=== PATIENT | female | born 1945 | race Caucasian/White ===

== ENCOUNTER 2025-08-01 14:49 | Outpatient (AMB) | payer MEDICARE, SELFPAY ==
--- NOTE | 2025-08-01 14:51 | A.OFFVIS_ITS ---
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 She has a long history of bilateral tinnitus but no hearing loss or severe vertigo. In the last 6 months, she has noted sudden episodic balance problems while she is walking,she suddenly goes to 1 side briefly. She has not fallen. It is not related to quick change in direction, head movement or getting up quickly. She thinks she had a TIA 1 month ago but did not see anyone. She had gotten up at night and felt dizzy and for a few seconds she could not talk and her speech was slurred. There has been no recurrence after that and no previous history of those symptoms. Over the last year or so, she has noted that her memory is not as sharp and she has some short-term memory problems as well as word-finding difficulties where she gets stuck for a word. Her older sister developed Alzheimer's disease at 82. She also has a past history of breast cancer but has been cancer free for 7 years. She has had back surgery, hysterectomy,and shoulder surgery in the past. She has had occasional headaches and also has some anemia. COUNTS INCLUDE 234 BEDS AT THE [facility] Medical History (Updated 08/01/25 @ 15:07 by Osvaldo Oseguera MD) Recurrent breast cancer Osteopenia Multiple lung nodules on CT Lumbar spinal stenosis Glaucoma Fibromyalgia Depression Anemia Surgical History (Updated 07/27/25 @ 15:09 by SAL Villela) H/O shoulder surgery H/O mastectomy Hx of hysterectomy H/O colonoscopy History of lumpectomy of left breast History of back surgery Social History (Updated 07/27/25 @ 15:09 by SAL Villela) Alcohol intake: current Patient Tobacco Use Status: Never used Tobacco e-Cigarette/Vaping Use: Never Used Review of Systems Narrative Occasional headache, short-term memory loss with some word-finding difficulties, bilateral tinnitus and episodes of brief loss of balance Const Details: ?Sleep Difficulty getting to sleep??denies.??Difficulty maintaining sleep??denies?.?? Urge to move legs??denies.??Teeth grinding??denies.??Shouting or Kicking during sleep??denies.??Abnormal behavior during sleep??denies.??Excessive sleep??denies.??Snoring??denies.??Daytime sleepiness??denies.? General/Constitutional Change in appetite??denies.??Chills??denies.??Fatigue??denies.??Fever??denies.?? Weight gain??denies.??Weight loss??denies.? Ophthalmologic Blurred vision??denies.??Diminished visual acuity??denies.? ENT Stuffiness??denies.??Decreased hearing??denies.??Dry mouth??denies.??Ear pain??denies.??Nosebleed??denies.??Ringing in the ears??denies.??Sinus pain ??denies.??Sore throat??denies.??Swollen glands??denies.? Endocrine Cold intolerance??denies.??Excessive thirst??denies.??Frequent urination ??denies.??Heat intolerance??denies.? Respiratory Shortness of breath??denies.??Chest pain??denies.??Cough??denies.? Breast Breast lump??denies.??Nipple discharge??denies.? Cardiovascular Chest pain at rest??denies.??Chest pain with exertion??denies.??Claudication ??denies.??Fluid accumulation in the legs??denies.??Irregular heartbeat ??denies.??Palpitations??denies.? Gastrointestinal Abdominal pain??denies.??Constipation??denies.??Diarrhea??denies.??Heartburn ??denies.??Nausea??denies.??Rectal bleeding??denies.? Hematology Easy bruising??denies.??Prolonged bleeding??denies.? Genitourinary Frequent urination??denies.??Urgency??denies.??Incontinence??denies.??Erectile Dysfunction??denies.? Musculoskeletal Neck pain??denies.??Back pain??denies.??Muscle aches??denies.??Painful joints??denies.? Neurologic Difficulty swallowing??denies.??Balance difficulty??yes.??Coordination ??normal.??Difficulty speaking??word finding.??Dizziness??denies.??Fainting ??denies.??Gait abnormality??yes.??Headache??yes.??Loss of strength ??denies.??Loss of use of extremity??denies.??Memory loss??yes.??Seizures ??denies.??Tics??denies.??Tingling/Numbness??denies.??Transient loss of vision ??denies.??Tremor??denies.? Psychiatric Anxiety??denies.??Auditory/visual hallucinations??denies.??Delusions ??denies.??Depressed mood??yes.??Stressors??denies.??Substance abuse ??denies.??Suicidal thoughts??denies.? Physical Exam Neuro Other: ?Mini Mental Status Exam Level of Consciousness:?Alert.? Orientation:?Knows correct year, month, date, day and season.?Knows correct city, county and state. Knows correct location and floor.? Registration:?Able to register 3 objects.? Attention:?Serial 7's performed accurately.? Recall:?Able to recall 3 out of 3 objects.? Language:?Normal spontaneous speech, fluency, repetition, naming, comprehension, reading, and writing.? Total Score:?30/30.? Neurological Abnormal neurological findings:??none.? Mental Status:?Alert and oriented X 3.?Normal attention, orientation, me polly, and affect.? Cranial Nerves:?Pupils are equal, round and reactive to light. Fundoscopy shows normal disc bilaterally. External occular muscles are intact. Visual wilson are full, no ptosis. Face is symmetrical, no facial weakness or droop. Facial sensations are normal. Tongue protrudes in midline. Palate elevates symmetrically. Shoulder shrugging is normal.? Motor Examination:?Normal muscle tone, bulk and strength.?No atrophy or fasciculations.?No drift of the extended upper extremities.?Deep tendon reflexes are 2+.?Plantars are flexor.? Motor Strength:? Proximal Muscles (out of 5):?5 Distal Muscles (out of 5):?5 Neck Flexors (out of 5):?5 Neck Extensors (out of 5):?5 Deltoid (out of 5):?5 Biceps (out of 5):?5 Triceps (out of 5):?5 Serratus Anterior (out of 5):?5 Wrist Extensors (out of 5):?5 APB (out of 5):?5 Finger Spread (out of 5):?5 Ileopsoas (out of 5):?5 Quadriceps (out of 5):?5 Hamstrings (out of 5):?5 Tibialis Anterior (out of 5):?5 Peronei (out of 5):?5 EDB (out of 5):?5 Gastrocnemius (out of 5):?5 Straight Leg Raising:?90 degrees.? Sensory Exam:?Normal light touch, temperature, pinprick, vibration and joint-position sensations.?Rhomberg sign is absent.? Coordination:?No ataxia,?no titubation,?bqnvsc-fy-[id number], jojt-wucr-bygw test, and rapid alternating movements were normal.? Gait Exam:?Within normal limits.? Cerebellar Signs:?Swnxlk-uh-[id number] and noie-la-gabm is normal.?No dysdiadochokinesia.? Extrapyramidal System:?No tremor or?rigidity, normal facial expressions.?No bradykinesia. No bradyphrenia. Normal arm swing and posture. No propulsion or retropulsion.? Speech:?Normal,?no dysphasia or dysarthria.? General Examination GENERAL APPEARANCE:??normal,?in no acute distress?,?normal,?in no acute distress.? HEAD:??normocephalic,?atraumatic.? EYES:??sclera non-icteric,?conjunctiva clear.? EARS:??auditory canal clear,?tympanic membrane intact, clear.? NOSE:??no lesions.? ORAL CAVITY:??gums normal,?mucosa moist,?no lesions.? THROAT:??clear.? NECK/THYROID:??no cervical lymphadenopathy,?thyroid normal,?neck supple, full range of motion,?no carotid bruit.? SKIN:??no rashes,?no significant birthmarks.? HEART:??S1, S2 normal,?no murmurs?,?S1, S2 normal,?no murmurs.? LUNGS:??clear anteriorly and posteriorly?,?clear anteriorly and posteriorly.? CHEST:??no gross rib deformity,?clear to auscultation.? BACK:??normal exam of spine.? MUSCULOSKELETAL:??normal.? EXTREMITIES:??no edema?,?no edema.? PERIPHERAL PULSES:??normal.? PSYCH:??alert, oriented,?cognitive function intact,?cooperative with exam?,?alert, oriented,?cognitive function intact,?cooperative with exam.? Assessment & Plan Assessment & Plan (1) Dizziness: Code(s): R42 - Dizziness and giddiness Category: Medical (2) Ataxia: Code(s): R27.0 - Ataxia, unspecified Category: Medical (3) MCI (mild cognitive impairment) with memory loss: Code(s): G31.84 - Mild cognitive impairment of uncertain or unknown etiology Category: Medical (4) TIA (transient ischemic attack): Code(s): G45.9 - Transient cerebral ischemic attack, unspecified Category: Medical Plan Workup for her ataxia to make sure there is no microvascular disease or cerebellar lesion. TIA like episode will be investigated with a carotid Doppler and complete workup for her mCi for and memory loss with brain MRI, Amyloid PET scan labs and EEG. Orders: Orders PET Brain beta amyloid 4 Weeks G31.84 - Mild cognitive impairment of uncertain or unknown etiology TSH reflex Free T4 Today G31.84 - Mild cognitive impairment of uncertain or unknown etiology EEG Routine Today G31.84 - Mild cognitive impairment of uncertain or unknown etiology MR head/brain wo con 3 Weeks G31.84 - Mild cognitive impairment of uncertain or unknown etiology, R27.0 - Ataxia, unspecified US carotid duplex BI Today G45.9 - Transient cerebral ischemic attack, unspecified Vitamin B12 and Folate Today G31.84 - Mild cognitive impairment of uncertain or unknown etiology Basic Metabolic Panel Today G31.84 - Mild cognitive impairment of uncertain or unknown etiology Coding Level of Care Code New Pt Level 5 (38464) Diagnoses Dizziness R42 Ataxia R27.0 MCI (mild cognitive impairment) with memory loss G31.84 TIA (transient ischemic attack) G45.9
--- OUTSIDE RECORDS SUMMARY | 2025-08-01 20:02 | XMS_ITS | Clinical Summary ---
Author Organization [facility] Address [address] [place] [address] Care Team Providers Care Fisher Seal Name Role Phone Tor Gomez MD Primary Care Provider Unavailab le Allergies Active Allergy Reactions Criticality Noted Date Comments Latex 02/07/2018 Medications Medication Sig Dispensed Refills Start Date End Date Status citalopram (CELEXA) 20 MG tablet Take 20 mg by mouth daily. 0 Active venlafaxine (EFFEXOR) 37.5 MG tablet Take 37.5 mg by mouth 2 (two) times a day. 0 Active DORZOLAMIDE HCL OP Apply to eye. 0 Act alice timolol (TIMOPTIC) 0.25 % ophthalmic solution 1 drop 2 (two) times a day. 0 Active buPROPion (WELLBUTRIN XL) 150 MG 24 hr tablet Take 150 mg by mouth daily. 0 Active duloxetine (CYMBALTA) DR capsule 60 mg Take 60 mg by mouth daily. 0 Active dorzolamide-timolol PF (COSOPT PF) 22.3-6.8 MG/ML ophthalmic solution 1 drop 2 (two) times a day. 0 Active Mirabegron ER (MYRBETRIQ) 50 MG TB24 Take by mouth. 0 Active Multiple Vitamins-Minerals (MULTIVITAMIN ADULTS PO) Take by mouth. 0 Active B Complex Vitamins (VITAMIN-B COMPLEX PO) Take by mouth. 0 Active Cholecalciferol (VITAMIN D) 1000 units tablet Take 1,000 Units by mouth daily. 0 Active vitamin E 100 UNIT capsule Take 100 Units by mouth daily. 0 Active buPROPion (WELLBUTRIN SR) 150 MG 12 hr tablet TAKE 1 TABLET BY MOUTH ONCE DAILY FOR 3 DAYS THEN INCREASE TO TWICE ADAY 2 02/23/2019 Active venlafaxine (EFFEXOR-XR) 75 MG 24 hr capsule Take 75 mg by mouth daily. 1 02/09/2019 Active meloxicam (MOBIC) 7.5 MG tablet 0 03/23/2019 Active exemestane (AROMASIN) 25 MG tablet TAKE 1 TABLET BY MOUTH EVERY DAY 60 tablet 0 06/26/2022 Active Active Problems Problem Noted Date Diagnosed Date Arthritis of right glenohumeral joint 03/25/2019 Fibromyalgia 02/07/2018 Other specified glaucoma 02/07/2018 Malignant neoplasm of central portion of left fe male breast 05/19/2017 Malignant neoplasm of lower- outer quadrant of left female breast 03/24/2017 Overview: T1c N1M0 Microhematuria 12/25/2016 Chronic bladder pain 08/15/2016 Urgency of urination 08/15/2016 Nocturia 08/08/2015 Abnormal findings on cytolog ical and histological examination of urine Abdominal pain, right upper quadrant Frequency of urination Family History Medical History Relation Name Comments Colon cancer Brother Diabetes Other runs in the family Hypertension Other runs in the family Relation Name Status Comments Brother Other runs in the family Alive Social History Tobacco Use Types Packs/Day Years Used Date Smoking Tobacco: Never Smokeless Tobacco: Never Alcohol Use Standard Drinks/Week Comments No 0 (1 standard drink = 0.6 oz pur e alcohol) Sex and Gender Information Value Date Recorded Sex Assigned at Not on file Gender Identity Not on file Sexual Orientation Not on file Job Start Date Occupation Industry Not on file Not on file Not on file Last Filed Vital Signs Vital Sign Reading Time Taken Comments Blood Pressure 159/68 03/19/2022 11:12 AM EDT Pulse 85 03/19/2022 11:12 AM EDT Temperature 36.9 C (98.5 F) 03/19/2022 11:12 AM EDT Respiratory Rate - - Oxygen Saturation 100% 03/19/2022 11:12 AM EDT Inhaled Oxygen Concentration - - Weight 61.5 kg (135 lb 9.6 oz) 03/19/2022 11:12 AM EDT Height 149.9 cm (4' 11 ) 03/19/2022 11:12 AM EDT Body Mass Index 27.39 03/19/2022 11:12 AM EDT Plan of Treatment Health Maintenance Due Date Last Done Comments COVID-19 Vaccine (#1) 01/20/1950 Depression Screening 1957 Preventative Health Evaluation 01/20/1962 DTap / Tdap / Td (1 - Tdap) 01/20/1963 Shingrix-Zoster Vaccine (1 o f 2) 01/20/1963 Fall Risk Assessment 01/20/2009 Osteoporosis Screening (DEXA Scan) 01/20/2009 Pneumococcal Vaccine (2 of 2 - PPSV23 or PCV20) 11/17/2017 09/22/2017, 05/29/2016 RSV Adult > 60+ Yrs or (1 - 1-dose 75+ series) 01/20/2019 Influenza Vaccine (#1) 2025 1, 08/12/2019, 07/25/2017 Hepatitis B Vaccines Aged Out No long er eligible based on patient's age to complete this topic RSV Ped < 20 months Aged Out No longe r eligible based on patient's age to complete this topic Care Teams Fisher Seal Relationship Specialty Start Date End Date Tor Gomez MD PCP - General Internal Medicine 03/03/19
--- OUTSIDE RECORDS SUMMARY | 2025-08-01 20:02 | XMS_ITS ---
Author Name [facility] Organization Unknown Care Team Organization Name Specialty Phone Email Start Date End Da te [facility] 05/31/2025 [facility] GINETTE EARL Primary Care 08/19/2022 05/30/20 24
--- OUTSIDE RECORDS SUMMARY | 2025-08-01 20:02 | XMS_ITS | Encounter Summary ---
Author Organization [facility] Address [address] [place] [address] Care Team Providers Care Cutter Operator Helper Name Role Phone Tor Gomez MD Primary Care Provider [phone] Reason for Visit * Reason Onset Date Comments Referral(neruo) 05/12/2025 Encounter Details Date Type Department Care Team ([facility] st Contact Info) Description 05/12/2025 Telephone Internal Medicine - [place] [address] [facility] [address] [place] [phone] Tor Gomez MD [address] [facility] [address] [place] [address] Social History Tobacco Use Types Packs/Day Years Used Date Smoking Tobacco: Never Smokeless Tobacco: Never Alcohol Use Standard Drinks/Week Comments Yes 0 (1 standard drink = 0.6 oz pur e alcohol) Comments No Sex and Gender Information Value Date Recorded Sex Assigned at Not on file Legal Sex Female 10:26 AM EST Gender Identity Not on file Sexual Orientation Not on file documented as of this encounter Progress Notes * Yareli Madison [place] - 05/23/2025 1:56 PM EDT 05/23 Left patient vmail to return call regarding message below. Awaiting pt cb . * Chiara Falk - 05/12/2025 2:46 PM EDT Pt called and stated that the neurologist she was sent to can not see her until the end of July and she would like to know if she can be seen somewhere else sooner or if the current referral can be expedited. Please advise Cb# [phone] documented in this encounter Plan of Treatment Upcoming Encounters Date Type Department Care Team (Late st Contact Info) Description 08/14/2025 2:40 PM EST Office Visit [facility] Cardiology [address] [place] [address] Pearl Perez NP [address] [place] [address] [address] [place] [phone] 12/27/2025 10:45 AM EDT Office Visit [facility] Hematology Oncology [address] [place] [address] Adam Jang MD [address] [place] [phone] documented as of this encounter Visit Diagnoses Not on filedocumented in this encounter Additional Health Concerns Assessment Noted Time PHQ-9 Depression Total Score: 0 04/27/20 25 8:31 AM EDT documented as of this encounter Care Teams Cutter Operator Helper Relationship Specialty Start Date End Date Tor Gomez MD [address] [facility] [address] [place] [address] PCP - General Internal Medicine 12/02/18 documented as of this encounter
--- OUTSIDE RECORDS SUMMARY | 2025-08-01 20:02 | XMS_ITS | Encounter Summary ---
Author Organization [facility] Address [address] [place] [address] Care Team Providers Care Idea Man Name Role Phone Tor Gomez MD Primary Care Provider [phone] Encounter Details Date Type Department Care Team (Late st Contact Info) Description 07/11/2025 Results Follow-Up [facility] Hematology Oncology [address] [place] [phone] Adam Jang MD [address] [place] [phone] Social History Tobacco Use Types Packs/Day Years [...] on file documented as of this encounter Plan of Treatment Upcoming Encounters Date Type Department Care Team (Late st Contact Info) Description 08/14/2025 2:40 PM EST Office Visit [facility] [address] [place] [phone] Pearl Perez NP [address] [place] [address] [address] [place] [phone] 12/27/2025 10:45 AM EDT Office Visit [facility] Hematology Oncology [address] [place] [phone] Adam Jang MD [address] [place] [phone] documented as of this encounter Visit Diagnoses Not on filedocumented in this encounter Additional Health Concerns Assessment Noted Time PHQ-9 Depression Total Score: 0 04/27/20 25 8:31 AM EDT documented as of this encounter Care Teams Idea Man Relationship Specialty Start Date End Date Tor Gomez MD [address] [address] PCP - General Internal Medicine 12/02/18 documented as of this encounter
--- OUTSIDE RECORDS SUMMARY | 2025-08-01 20:02 | XMS_ITS | Clinical Summary ---
Author Organization [facility] Address [address] [place] [phone] Phone Care Team Providers Care Mechanical Artist Name Role Phone Tor Gomez MD Primary Care Provider [phone] Allergies Active Allergy Reactions Criticality Noted Date Comments Latex 05/11/2025 Medications venlafaxine XR (EFFEXOR-XR) 75 mg 24 hr capsuleIndicatio ns:Major depressive disorder, recurrent, unspecified (CMS/HCC V24) Take 1 capsule (75 mg total) by mouth 1 (one) time each day. 90 capsule 3 04/27/2025 Active buPROPion SR (WELLBUTRIN SR) 150 mg 12 hr tablet Take 1 tablet (150 mg total) by mouth 2 (two) times a day. 02/23/2019 Active carvediloL (COREG) 3.125 mg tablet TAKE 1 TABLET BY MOUTH TWICE A DAY WITH MEALS 180 tablet 06/02/2025 Active Encounters Date Type Department Care Team Description 07/11/2025 Results Follow-Up [facility] Hematology Oncology [address] [place] [phone] Genaro-Iy Adam lee MD 07/06/2025 1:00 PM EDT Office Visit [facility] Hematology Oncology [address] [place] [address] Williamonia-Iy Adam lee MD Normocytic anemia 05/12/2025 Telephone Internal Medicine - [place] [address] [facility] [address] [place] [address] Tor Gomez MD 05/11/2025 10:00 AM EDT Consult Internal Medicine - [place] [address] [facility] [address] [place] [address] Tor Gomez MD Preop examination (Primary Dx); Balance disorder; Normocytic anemia; Current mild episode of major depressive disorder, unspecified whether recurrent (CMS/HCC V24) from Last 3 Months Surgical History Surgery Date Site/Laterality Comments BACK SURGERY 2008 PROCEDURE: HISTORICAL BACK SURGERY; COMMENT: L4-L5 fusion Dr. Rosales MASTECTOMY 1993 Right PROCEDURE: HISTORICAL MASTECTOMY; COMMENT: due cancer SHOULDER SURGERY Left PROCEDURE: HISTORICAL SHOULDER SURGERY; COMMENT: Dr. Lawson BREAST LUMPECTOMY 12/2016 Left PROCEDURE: HISTORICAL BREAST LUMPECTOMY; COMMENT: due cancer HYSTERECTOMY late PROCEDURE: HISTORICAL HYSTERECTOMY; COMMENT: uterine fibroids and DUB COLONOSCOPY 10/31/2016 PROCEDURE: HISTORICAL COLONOSCOPY; COMMENT: polyp=tubular adenoma- repeat [address] Carreno Medical History Medical History Date Comments Anemia 03/24/2018 DX:Anemia Depression, recurrent (CMS/HCC V24) 09/22/2017 DX:Depression, recurrent ([facility]); COMMENT: Comments: ( citalopram increased 04/25/15) [employer]GER wellness exam supports major depression 03/01/13 Fibromyalgia 03/24/2018 DX:Fibromyalgia Glaucoma 02/25/2010 DX:Glaucoma Lumbar spinal stenosis 05/29/2016 DX:Lumbar spinal stenosis Multiple lung nodules on CT 10/15/2016 DX:M ultiple lung nodules on CT Recurrent breast cancer (CMS /HCC V24, CMS/HCC V28) 03/24/2018 DX:Recurrent breast cancer ( [facility]) Osteopenia DX:Osteopenia Social History Tobacco Use Types Packs/Day Years Used Date Smoking Tobacco: Never Smokeless Tobacco: Never Tobacco Cessation:Counseling Given: Not Answered Alcohol Use Standard Drinks/Week Comments Yes 0 (1 standard drink = 0.6 oz pur e alcohol) Comments No Sex and Gender Information Value Date Recorded Sex Assigned at Not on file Legal Sex Female 10:26 AM EST Gender Identity Not on file Sexual Orientation Not on file Obstetrics History Last Filed Vital Signs Vital Sign Reading Time Taken Comments Blood Pressure 144/44 07/06/2025 1:06 PM EDT Pulse 78 07/06/2025 1:06 PM EDT Temperature 36.7 C (98 F) 07/06/2025 1:06 PM EDT Respiratory Rate 18 04/27/2025 8:31 AM EDT Oxygen Saturation 100% 07/06/2025 1:06 PM EDT Inhaled Oxygen Concentration - - Weight 57.2 kg (126 lb) 07/06/2025 1:06 PM EDT Height 149.9 cm (4' 11 ) 05/11/2025 10:09 AM EDT Body Mass Index 25.45 05/11/2025 10:09 AM EDT Plan of Treatment Upcoming Encounters Date Type Department Care Team (Late st Contact Info) Description 08/14/2025 2:40 PM EST Office Visit [facility] [address] [place] [address] Dr Delgado [address] [place] [phone] Pearl Perez NP [address] [place] [address] Dr Dhaliwal [address] [place] [phone] 12/27/2025 10:45 AM EDT Office Visit [facility] Hematology Oncology [address] [place] [address] Adam Jang MD [address] [place] [phone] Health Maintenance Due Date Last Done Comments DTaP,Tdap,and Td Vaccines (1 - Tdap) 01/20/1964 RSV Immunization Adult Patients (1 - 1-dose 75+ series) 01/20/2019 Falls Risk Assessment 09/18/2022 Social Influencers of Health Screening 09/18/2022 COVID-19 Vaccine ( season) 2025 11/13/2022, 08/05/2021, 01/15/2021, Additional history exists Influenza Vaccine (#1) 2025 , 09/30/2023, 09/10/2022, Additional history exists Hypertension/CHF/CAD Annual BMP Blood Test 04/27/2026 04/27/2025, 04/25/2024 Medicare Annual Wellness Visit 04/27/2026 04/27/2025 Cholesterol Screening (Lipid Panel) 04/27/2030 04/27/2025, 04/25/2024 Osteoporosis Screening (Bone Density Screening) 06/16/2033 06/16/2023, 02/25/2021, 02/27/2020, Additional history exists Zoster Vaccines Completed 03/26/2023, 11/2022, 09/27/2013 Pneumococcal Vaccine: 50+ Years Completed 09/30/2023, 09/22/2017, 05/29/2016 Depression Screening Completed 04/27/2025 HIB Vaccines Aged Out No longer eligi ble based on patient's age to complete this topic HPV Vaccines Aged Out No longer eligi ble based on patient's age to complete this topic Hepatitis A Vaccines Aged Out No long er eligible based on patient's age to complete this topic Hepatitis B Vaccines Aged Out No long er eligible based on patient's age to complete this topic IPV Vaccines Aged Out No longer eligi ble based on patient's age to complete this topic MMR Vaccines Aged Out No longer eligi ble based on patient's age to complete this topic Meningococcal ACWY Vaccine Aged Out N o longer eligible based on patient's age to complete this topic Meningococcal B Vaccine Aged Out No l onger eligible based on patient's age to complete this topic RSV Immunization Patients Under 20 months Aged Out No longer eligible based on patient's age to complete this topic Varicella Vaccines Aged Out No longer eligible based on patient's age to complete this topic Procedures Procedure Name Priority Date/Time Associated Diagnosis Comments ME PROTEIN ELECTROPHORETIC FRACTIONATION & QUANTITATION SERUM Routine 07/06/2025 1:36 PM EDT Normocytic anemia PROTEIN, TOTAL Routine 07/06/2025 1:36 PM EDT Normocytic anemia CBC WITH AUTO DIFFERENTIAL Routine 07/06/2025 1:36 PM EDT Normocytic anemia PROTEIN ELECTROPHORESIS, SERUM Routine 07/06/2025 1:36 PM EDT Normocytic anemia VITAMIN B12 AND FOLATE Routine 1:36 PM EDT Normocytic anemia HAPTOGLOBIN Routine 07/06/2025 1:36 PM EDT Normocytic anemia LACTATE DEHYDROGENASE Routine 07/06/2025 1:36 PM EDT Normocytic anemia FERRITIN Routine 07/06/2025 1:36 PM EDT Normocytic anemia IRON AND TIBC Routine 07/06/2025 1:36 PM EDT Normocytic anemia CBC AND DIFFERENTIAL Routine 07/06/2025 1:36 PM EDT Normocytic anemia COMPREHENSIVE METABOLIC PANEL Routine 04/27/2025 8:51 AM EDT Hypercholesterolemi a Hyperglycemia LIPID PANEL WITH REFLEX TO DIRECT LDL Routine 04/27/2025 8:51 AM EDT Hypercholesterolemi a Hyperglycemia STAN DEXA AXIAL SKELETON Routine 06/16/20 9:57 AM EDT Encounter for screening for osteoporosis from Last 3 Months or Most Recently Relevant to Health Maintenance Results * PATHOLOGIST REVIEW PROTEIN ELECTROPHORESIS (07/06/2025 1:36 PM EDT) Pathologist Interpretation Kirstin Phelan MD 07/10/2025 2:47 PM EDT [facility] Blood Venous blood specimen / Unknown Venipuncture / Unknown 07/06/2025 1:36 PM EDT 07/06/2025 4:34 PM EDT us Adam Jang MD LAB BLOOD ORDERABLE S Final Result [facility] [address] [place] [address], * (ABNORMAL) Vitamin B12 and folate (07/06/2025 1:36 PM EDT) [facility] Vitamin B-12 >2,000(H) 250 - 900 pcg/mL LAB CHEMISTRY METHOD 07/06/2025 10:35 PM EDT [facility] Folate >20.0(H) 2.8 - 17.0 ng/ml LAB CHEMISTRY METHOD 07/06/2025 10:35 PM EDT [facility] Blood Venous blood specimen / Unknown Venipuncture / Unknown 07/06/2025 1:36 PM EDT 07/06/2025 4:34 PM EDT Adam Jang MD LAB BLOOD ORDERABLE S Final Result [facility] [address] [place] [address], * (ABNORMAL) CBC auto differential (07/06/2025 1:36 PM EDT) [facility] WBC 6.6 4.8 - 10.8 K/mcL LAB HEMETOLOGY METHOD 07/06/2025 5:11 PM EDT [facility] RBC 4.00 3.80 - 4.80 M/mcL LAB HEMETOLOGY METHOD 07/06/2025 5:11 PM EDT [facility] Hemoglobin 11.0(L) 11.5 - 16.0 g/dL LAB HEMETOLOGY METHOD 07/06/2025 5:11 PM EDT [facility] Hematocrit 36.2 35.0 - 47.0 % LAB HEMETOLOGY METHOD 07/06/2025 5:11 PM EDT [facility] MCV 89.8 79.0 - 98.0 FL LAB HEMETOLOGY METHOD 07/06/2025 5:11 PM EDT [facility] MCH 27.3 27.0 - 32.0 pcg LAB HEMETOLOGY METHOD 07/06/2025 5:11 PM EDT [facility] MCHC 30.4(L) 32.0 - 37.0 g/dL LAB HEMETOLOGY METHOD 07/06/2025 5:11 PM EDT [facility] RDW 13.4 11.0 - 15.0 % LAB HEMETOLOGY METHOD 07/06[facility]2025 [facility] Platelets 362 130 - 400 K/mcL LAB HEMETOLOGY METHOD 07/06/2025 5:[facility] MPV 11.0 7.0 - 11.0 FL LAB HEMETOLOGY METHOD 07/06/2025 5:[facility] NRBC 0.0 <1.0 % LAB HEMETOLOGY METHOD 07/06/2025 5:[address] [facility] NRBC Absolute 0.00 <0.10 K/mcL LAB HEMETOLOGY METHOD 07/06/2025 5:[address] [facility] Neutrophils Relative 66.4 % LAB HEMETOLOGY METHOD 07/06/2025 5:[address] [facility] Lymphocytes Relative 20.8 % LAB HEMETOLOGY METHOD 07/06/2025 5:[address] [facility] Monocytes Relative 8.2 % LAB HEMETOLOGY METHOD 07/06/2025 5:[address] [facility] Eosinophils Relative 3.5 % LAB HEMETOLOGY METHOD 07/06/2025 5:[address] [facility] Basophils Relative 0.8 % LAB HEMETOLOGY METHOD 07/06/2025 5:[address] [facility] Immature Granulocytes Relative 0.3 % LAB HEMETOLOGY METHOD 07/06/2025 5:[address] [facility] Neutrophils Absolute 4.38 1.50 - 7.00 K/mcL LAB HEMETOLOGY METHOD 07/06/2025 5:[facility] Lymphocytes Absolute 1.37 1.00 - 5.00 K/mcL LAB HEMETOLOGY METHOD 07/06/2025 5:11 PM EDT [facility] Monocytes Absolute 0.54 0.20 - 1.00 K/mcL LAB HEMETOLOGY METHOD 07/06/2025 5:11 PM EDT [facility] Eosinophils Absolute 0.23 0.00 - 0.50 K/[facility] LAB HEMETOLOGY METHOD 07/06/2025 5:11 PM EDT [facility] Basophils Absolute 0.05 0.00 - 0.20 K/mcL LAB HEMETOLOGY METHOD 07/06/2025 5:11 PM EDT [facility] Immature Granulocytes Absolute 0.02 0.00 - 0.03 K/mcL LAB HEMETOLOGY METHOD 07/06/2025 5:11 PM EDT [facility] Blood Venous blood specimen / Unknown Venipuncture / Unknown 07/06/2025 1:36 PM EDT 07/06/2025 4:38 PM EDT Adam Jang MD LAB BLOOD ORDERABLE S Final Result [facility] [address] [place] [address], * Iron and TIBC (07/06/2025 1:36 PM EDT) Iron 65 40 - 150 mcg/dL LAB CHEMISTRY METHOD 07/06/2025 10:13 PM EDT [facility] TIBC 288 250 - 450 mcg/dL LAB CHEMISTRY METHOD 07/06/2025 10:13 PM EDT [facility] Iron Saturation 23 15 - 50 % LAB CHEMISTRY METHOD 07/06/2025 10:13 PM EDT [facility] Blood Venous blood specimen / Unknown Venipuncture / Unknown 07/06/2025 1:36 PM EDT 07/06/2025 4:34 PM EDT us Adam Jang MD LAB BLOOD ORDERABLE S Final Result [facility] [address] [place] [address], [place] [phone] * Protein electrophoresis, serum (07/06/2025 1:36 PM EDT) Pathologist [facility] Total Protein 6.8 6.0 - 8.0 g/dL LAB CHEMISTRY METHOD 07/10/2025 2:47 PM EDT [facility] Albumin, Serum 3.7 2.9 - 4.1 g/dL LAB CHEMISTRY METHOD 07/10/2025 2:47 PM EDT [facility] Alpha 1 Globulin (g/dL) 0.2 0.1 - 0.5 g/dL LAB CHEMISTRY METHOD 07/10/2025 2:47 PM EDT [facility] Alpha 2 Globulin (g/dL) 0.9 0.7 - 1.5 g/dL LAB CHEMISTRY METHOD 07/10/2025 2:47 PM EDT [facility] Beta (g/dL) 1.0 0.7 - 1.5 g/dL LAB CHEMISTRY METHOD 07/10/2025 2:47 PM EDT [facility] Gamma Globulin (g/dL) 1.0 0.7 - 1.9 g/dL LAB CHEMISTRY METHOD 07/10/2025 2:47 PM EDT [facility] SPEP Interpretation Essentially normal pattern. No M-Eriberto seen. LAB CHEMISTRY METHOD 07/10/2025 2:47 PM EDT [facility] Blood Venous blood specimen / Unknown Venipuncture / Unknown 07/06/2025 1:36 PM EDT 07/06/2025 4:34 PM EDT us Adam Jang MD LAB BLOOD ORDERABLE S Final Result Performing Organization Address [facility]/ZIP Co de Phone Number [facility] [address] [place] [address], [place] [phone] * Protein, total (07/06/2025 1:36 PM EDT) Pathologist [facility] Total Protein 6.8 6.0 - 8.0 g/dL LAB CHEMISTRY METHOD 07/06/2025 10:12 PM EDT [facility] Blood Venous blood specimen / Unknown Venipuncture / Unknown 07/06/2025 1:36 PM EDT 07/06/2025 4:34 PM EDT Adam Jang MD LAB BLOOD ORDERABLE S Final Result Performing Organization Address [facility]/ZIP Co de Phone Number [facility] [address] [place] [address], [place] [phone] * (ABNORMAL) Lactate dehydrogenase (07/06/2025 1:36 PM EDT) Pathologist [facility] LDH 247(H) 120 - 246 unit/L LAB CHEMISTRY METHOD 07/06/2025 10:13 PM EDT [facility] Blood Venous blood specimen / Unknown Venipuncture / Unknown 07/06/2025 1:36 PM EDT 07/06/2025 4:34 PM EDT Adam Jang MD LAB BLOOD ORDERABLE S Final Result Performing Organization Address [facility]/ZIP Co de Phone Number [facility] [address] [place] [address], [place] [phone] * Haptoglobin (07/06/2025 1:36 PM EDT) Haptoglobin 105 16 - 200 mg/dL LAB CHEMISTRY METHOD 07/06/2025 10:13 PM EDT [facility] Blood Venous blood specimen / Unknown Venipuncture / Unknown 07/06/2025 1:36 PM EDT 07/06/2025 4:34 PM EDT Adam Jang MD LAB BLOOD ORDERABLE S Final Result [facility] [address] [place] [address], [place] [phone] * Ferritin (07/06/2025 1:36 PM EDT) Ferritin 78 8 - 252 ng/mL LAB CHEMISTRY METHOD 07/06/2025 10:13 PM EDT [facility] Blood Venous blood specimen / Unknown Venipuncture / Unknown 07/06/2025 1:36 PM EDT 07/06/2025 4:34 PM EDT Adam Jang MD LAB BLOOD ORDERABLE S Final Result Performing Organization Address City/[facility]/ZIP Co de Phone Number [facility] [address] [place] [address], [place] [phone] * Lipid panel with reflex to direct LDL (04/27/2025 8:51 AM EDT) Cholesterol 185 0 - 200 mg/dL LAB CHEMISTRY METHOD 04/27/2025 10:31 AM EDT [facility] Triglycerides 69 0 - 150 mg/dL LAB CHEMISTRY METHOD 04/27/2025 10:31 AM EDT [facility] HDL 77 >=40 mg/dL LAB CHEMISTRY METHOD 04/27/2025 10:31 AM EDT [facility] LDL Calculated 94 0 - 100 mg/dL LAB CHEMISTRY METHOD 04/27/2025 10:31 AM EDT [facility] VLDL Cholesterol Oh 13.8 mg/dL LAB CHEMISTRY METHOD 04/27/2025 10:[address] [facility] Non HDL Chol. (LDL+VLDL) 108 <145 mg/dL LAB CHEMISTRY METHOD 04/27/2025 10:[address] [facility] Chol/HDL Ratio 2.4 0.0 - 4.4 LAB CHEMISTRY METHOD 04/27/2025 10:[address] [facility] Blood Venous blood specimen / Unknown Venipuncture / Unknown 04/27/2025 8:51 AM EDT 04/27/2025 8:51 AM EDT us Tor Gomez MD LAB BLOOD ORDERABLES Final Resul t [facility] [address] [place] [address], [place] [phone] * (ABNORMAL) Comprehensive metabolic panel (04/27/2025 8:51 AM EDT) Sodium 142 133 - 145 mmol/L LAB CHEMISTRY METHOD 04/27/2025 10:[address] [facility] Potassium 4.7 3.5 - 5.5 mmol/L LAB CHEMISTRY METHOD 04/27/2025 10:[address] [facility] Chloride 108 96 - 110 mmol/L LAB CHEMISTRY METHOD 04/27/2025 10:[address] [facility] CO2 30 21 - 32 mmol/L LAB CHEMISTRY METHOD 04/27/2025 10:[address] [facility] Anion Gap 4 3 - 11 LAB CHEMISTRY METHOD 04/27/2025 10:[address] [facility] Glucose 82 70 - 100 mg/dL LAB CHEMISTRY METHOD 04/27/2025 10:[address] [facility] BUN 26(H) 5 - 25 mg/dL LAB CHEMISTRY METHOD 04/27/2025 10:[address] [facility] Creatinine 0.80 0.50 - 1.10 mg/dL LAB CHEMISTRY METHOD 04/27/2025 10:[address] [facility] eGFR 74 >=60 mL/min/1. 73m2 LAB CHEMISTRY METHOD 04/27/2025 10:[address] [facility] Comment:Calculation based on the Chronic Kidney Disease Epidemiology Collaboration (CKD-EPI) equation refit without adjustment for race. BUN/Creatinine Ratio 32.5 LAB CHEMISTRY METHOD 04/27/2025 10:[address] [facility] Calcium 9.3 8.5 - 10.5 mg/dL LAB CHEMISTRY METHOD 04/27/2025 10:[address] [facility] AST (SGOT) 15 10 - 42 unit/L LAB CHEMISTRY METHOD 04/27/2025 10:[address] [facility] ALT (SGPT) 19 10 - 60 unit/L LAB CHEMISTRY METHOD 04/27/2025 10:[address] [facility] Alkaline Phosphatase 120 42 - 121 unit/L LAB CHEMISTRY METHOD 04/27/2025 10:[address] [facility] Total Protein 6.8 6.0 - 8.0 g/dL LAB CHEMISTRY METHOD 04/27/2025 10:[address] [facility] Albumin 3.8 3.2 - 5.0 g/dL LAB CHEMISTRY METHOD 04/27/2025 10:[address] [facility] Total Bilirubin 0.4 0.0 - 1.4 mg/dL LAB CHEMISTRY METHOD 04/27/2025 10:[address] [facility] Blood Venous blood specimen / Unknown Venipuncture / Unknown 04/27/2025 8:51 AM EDT 04/27/2025 8:51 AM EDT us Tor Gomez MD LAB BLOOD ORDERABLES Final Resul t [facility] [address] [place] [address], [place] [phone] * STAN DEXA AXIAL SKELETON (06/16/2023 9:57 AM EDT) Anatomical Region Laterality Modality Mammography 06/12/2023 11:2 9 AM EDT Narrative 06/16/2023 9:57 AM EDT [facility] Diagnostic Imaging Department [address] [place] [id number] Patient: ASHLEY BANERJEEO.B./Age/Sex: 1945 - 78 - F Unit#: [id number] Location/Status: SPDIMA/REG CLI Mnemonic/Ordering Site: MAMDEXAAX/SPMAM Ordering Physician: TOR GOMEZ MD Stan Dexa Axial Skeleton - 06/12/23 - [id number] Report Status:Signed History: Low estrogen state due to menopause. Comparison: 02/25/21 Findings: Bone densitometry is performed utilizing dual energy x-ray absorptiometry (DXA) in the i-Neumaticos unit. The lumbar spine and proximal femora are evaluated in the AP projection. The FRAX questionaire was completed. The results indicate low bone mass (osteopenia), with a left femoral neck T- score of -2.1. The Z score is 0.1, indicating bone mineral density within the range of normal for age. There has been no statistically significant change. The detailed DEXA report will be mailed to the referring physician's office. DualFemur FRAX: 10-year Probability of Fracture: Major Osteoporotic 9.3 percent Hip 2.6 percent. IMPRESSION: Osteopenia. [id number] Dictating Physician: STACY ARANDA MD Electronically Signed by: STACY ARANDA MD Dic Date/Time: 06/16/23955 Sign date/Time: 06/16/23956 Procedure Note Stacy Aranda MD - 11/17/2023 [facility] Diagnostic Imaging Department [address] [place] [address] Patient: RAMONE BANERJEEROSA YuenO.B./Age/Sex: 1945 - 78 - F Unit#: [id number] Location/Status: [facility] Ordering Physician: TOR GOMEZ MD Stan Dexa Axial Skeleton - 06/12/23 - [id number] Report Status:Signed History: Low estrogen state due to menopause. Comparison: 02/25/21 Findings: Bone densitometry is performed utilizing dual energy x-ray absorptiometry(DXA) in the i-Neumaticos unit. The lumbar spine and proximal femora areevaluated in the AP projection. The FRAX questionaire was completed. The results indicate low bone mass (osteopenia), with a left femoral neckT- score of -2.1. The Z score is 0.1, indicating bone mineral density withinthe range of normal for age. There has been no statistically significant change. The detailed DEXAreport will be mailed to the referring physician's office. DualFemur FRAX: 10-year Probability of Fracture: Major Osteoporotic 9.3percent Hip 2.6 percent. IMPRESSION: Osteopenia. [id number] Dictating Physician: STACY ARANDA MD Electronically Signed by: STACY ARANDA MD Dic Date/Time: 06/16/23955 Sign date/Time: 06/16/23956 Tor Gomez MD IMG BI PROCEDURES Final Result from Last 3 Months or Most Recently Relevant to Health Maintenance Insurance [employer] Care Teams Mechanical Artist Relationship Specialty Start Date End Date Tor Gomez MD [address] [id number] PCP - General Internal Medicine 12/02/18
== END 2025-08-01 15:21 | disposition home or self-care (01) ==
PROVIDERS: PCP Internal Medicine; Visit Provider Psychiatry & Neurology Neurology
DX: R42 Dizziness and giddiness (principal); G31.84 Mild cognitive impairment of uncertain or unknown etiology; G45.9 Transient cerebral ischemic attack, unspecified
CPT/HCPCS: 99204

== ENCOUNTER → 2025-08-01 14:49 | Outpatient (BNVA) | payer MEDICARE, SELFPAY | PROVIDERS: PCP Internal Medicine; Visit Provider Psychiatry & Neurology Neurology | DX: R42 Dizziness and giddiness (principal); G31.84 Mild cognitive impairment of uncertain or unknown etiology; G45.9 Transient cerebral ischemic attack, unspecified | CPT/HCPCS: 99202 ==

== ENCOUNTER 2025-08-15 12:52 | Outpatient (REF) | payer MEDICARE, SELFPAY ==
--- OUTSIDE RECORDS SUMMARY | 2025-08-14 14:40 | XMS_ITS | Encounter Summary ---
Author Organization [facility] Address [address] [place] [address] Care Team Providers Care Assistant Professor Of Dietetics Name Role Phone Tor Gomez MD Primary Care Provider [phone] Reason for Visit * Reason Comments Follow-up * Consultation (Routine) - Authorized Specialty Diagnoses / Procedures Referred By Contac t Referred To Contact Cardiology Diagnoses Palpitations Tor Gomez MD [address] [facility] [address] [place] [address] Phone: tel: fax: [facility] [address] [place] [address] Phone: tel: fax: Referral ID Status Reason Start Date Expiration Date Visits Requested Visits Authorized [id number] Authorized Specialty Services Required 08/02/2026 6 6 Encounter Details Date Type Department Care Team (Late st Contact Info) Description 08/14/2025 2:40 PM EST Office Visit [facility] [address] [place] [address] Osman Healy NP [address] [place] [address] [address] [place] [address] Palpitations (Primary Dx); Precordial pain; Primary hypertension Social History Tobacco Use Types Packs/Day Years Used Date Smoking Tobacco: Never Smokeless Tobacco: Never Alcohol Use Standard Drinks/Week Comments Yes 0 (1 standard drink = 0.6 oz pur e alcohol) occ Comments No Sex and Gender Information Value Date Recorded Sex Assigned at Not on file Legal Sex Female 10:26 AM EST Gender Identity Not on file Sexual Orientation Not on file documented as of this encounter Last Filed Vital Signs Vital Sign Reading Time Taken Comments Blood Pressure 110/60 08/14/2025 2:49 PM EST Pulse 89 08/14/2025 2:49 PM EST Temperature - - Respiratory Rate - - Oxygen Saturation 99% 08/14/2025 2:49 PM EST Inhaled Oxygen Concentration - - Weight 55.8 kg (123 lb) 08/14/2025 2:49 PM EST Height 149.9 cm (4' 11 ) 08/14/2025 2:49 PM EST Body Mass Index 24.84 08/14/2025 2:49 PM EST documented in this encounter Ordered Prescriptions Prescription Sig Dispense Quantity Refills Last Filled Start Date End Date carvediloL (COREG) 3.125 mg tabletIndications:P alpitations Take 1 tablet (3.125 mg total) by mouth 2 (two) times a day with meals. 180 tablet 3 08/14/2025 documented in this encounter Progress Notes * Osman Healy NP - 08/14/2025 2:40 PM ESTAssociated Problem(s): Precordial pain She denies any recent episodes of chest discomfort. She had a previous negative nuclear stress test. Orders: ECG 12 lead * Osman Healy NP - 08/14/2025 2:40 PM ESTAssociated Problem(s): Palpitations Patient presenting today for follow-up on her ongoing palpitations. Overall they have improved since starting carvedilol. Her blood pressure is also improved since starting carvedilol. She will continue on 3.125 mg twice daily. She states that the brief palpitations she experiences have not changedin nature since her previous Holter monitor. She will contact the office if she develops new or wors ening symptoms. At this time, she can follow-up with cardiology as needed. * Osman Healy NP - 08/14/2025 2:40 PM ESTAddended by: OSMAN HEALY on: 08/14/2025 03:36 PM Modules accepted: Orders * Osman Healy NP - 08/14/2025 2:40 PM EST Images from the original note were not included. [facility] PRIMARY LEAD SECTION SUPERVISOR: Sumeet Wade MD PCP: Tor Gomez MD HPI: Ashley Banerjee is a 80 y.o. old female with no significant past medical history who is referred toour office for evaluation of palpitation. She also had episodes of chest pain for which we performed nuclear stress test for her. The nuclear stress test was done on 09/22/2023 which did not show any ischemia or infarction. She wore a 48-hour Holter monitor in August 2023 which showed normal sinus rhythm, rare PACs. No PVCs. No pauses noted. Episodes of palpitations noted with the EKG at those times showing primarily normal sinus rhythm with isolated PACs and heart rates of 66 to 104 bpm. Patient was evaluated by Dr. Wade after her Holter monitor. She had elevated blood pressure and ongoing palpitations, as such carvedilol was initiated. Since today for cardiac follow-up. She reports she is doing well. She continues to have occasional episodes of palpitations but the frequency has reduced since starting carvedilol. They are brief in duration. She denies chest discomfort or shortness of breath. She denies dizziness, presyncope or syncope. She has no peripheral edema. She denies orthopnea. Her blood pressure has been much better controlled. ACTIVE MEDICATIONS: Medications Taking[1] PAST MEDICAL HISTORY: Problem List[2] ALLERGIES: Allergies[3] SOCIAL HISTORY: Social History Tobacco Use Smoking status: Never Smokeless tobacco: Never Substance Use Topics Alcohol use: Yes Comment: occ PHYSICAL EXAM: Vitals: 08/14/25 1449 BP: 110/60 BP Location: Left arm Patient Position: Sitting BP Cuff Size: Adult Pulse: 89 SpO2: 99% Weight: 55.8 kg (123 lb) Height: 1.499 m (59 ) Physical Exam Constitutional: General: She is not in acute distress. Appearance: She is well-developed. She is not diaphoretic. HENT: Head: Normocephalic. Eyes: Pupils: Pupils are equal, round, and reactive to light. Neck: Vascular: No carotid bruit, hepatojugular reflux or JVD. Cardiovascular: Rate and Rhythm: Normal rate and regular rhythm. Pulses: Normal pulses and intact distal pulses. Heart sounds: Normal heart sounds, S1 normal and S2 normal. No murmur heard. Pulmonary: Effort: Pulmonary effort is normal. Breath sounds: Normal breath sounds. No wheezing, rhonchi or rales. Chest: Chest wall: No tenderness. Abdominal: General: Bowel sounds are normal. There is no distension. Palpations: Abdomen is soft. Tenderness: There is no abdominal tenderness. Musculoskeletal: General: No deformity. Right lower leg: No edema. Left lower leg: No edema. Skin: General: Skin is warm and dry. Neurological: Mental Status: She is alert and oriented to person, place, and time. Psychiatric: Attention and Perception: Attention normal. Mood and Affect: Mood normal. Speech: Speech normal. EKG: Encounter Date: 08/14/25 ECG 12 lead Result Value Ventricular Rate ECG 90 Atrial Rate 90 P-R Interval 158 QRS Duration 64 Q-T Interval 346 QTc 423 P Wave [place] 49 R [place] 64 T [place] 60 ECG Interpretation Normal sinus rhythm Normal ECG When compared with ECG of 14-MAY-2023 11:02, No significant change was found *Note: Due to a large number of results and/or encounters for the requested time period, some results have not been displayed. A complete set of results can be found in Results Review. ASSESSMENT/PLAN: Assessment & Plan Palpitations Patient presenting today for follow-up on her ongoing palpitations. Overall they have improved since starting carvedilol. Her blood pressure is also improved since starting carvedilol. She will continue on 3.125 mg twice daily. She states that the brief palpitations she experiences have not changedin nature since her previous Holter monitor. She will contact the office if she develops new or worsening symptoms. At this time, she can follow-up with cardiology as needed. Precordial pain She denies any recent episodes of chest discomfort. She had a previous negative nuclear stress test. Orders: ECG 12 lead Thank you for allowing us to participate in the care of this patient. The patient will follow up PRN. As per AHA guidelines and previously established plan of care by Dr. Sumeet Wade MD, we discussed the following today: 1. Precordial pain 2. Primary hypertension 3. Palpitations [facility] [1] Outpatient Medications Marked as Taking for the 08/14/25 encounter (Office Visit) with Osman Healy NP Medication Sig Dispense Refill buPROPion SR (WELLBUTRIN SR) 150 mg 12 hr tablet TAKE 1 TABLET BY MOUTH TWICE A DAY 180 each 1 carvediloL (COREG) 3.125 mg tablet TAKE 1 TABLET BY MOUTH TWICE A DAY WITH MEALS 180 tablet 0 venlafaxine XR (EFFEXOR-XR) 75 mg 24 hr capsule Take 1 capsule (75 mg total) by mouth 1 (one) time each day. 90 capsule 3 [2] Patient Active Problem List Diagnosis Palpitations Precordial pain Primary hypertension [3] Allergies Allergen Reactions Latex Cosigned by Kenia Frazier MD at 08/14/2025 4:18 PM EST documented in this encounter Plan of Treatment Upcoming Encounters Date Type Department Care Team (Late st Contact Info) Description 12/27/2025 10:45 AM EDT Office Visit [facility] Hematology Oncology [address] [place] [address] Adam Jang MD [address] [place] [address] documented as of this encounter Procedures Procedure Name Priority Date/Time Associated Diagnosis Comments ECG 12-LEAD Routine 08/14/2025 3:34 PM EST Precordial pain Primary hypertension documented in this encounter Results * ECG 12 lead (08/14/2025 3:34 PM EST) Ventricular Rate ECG 90 BPM GEMUSE Atrial Rate 90 BPM GEMUSE P-R Interval 158 ms GEMUSE QRS Duration 64 ms GEMUSE Q-T Interval 346 ms GEMUSE QTc 423 ms GEMUSE P Wave [place] 49 degrees GEMUSE R [place] 64 degrees GEMUSE T [place] 60 degrees GEMUSE ECG Interpretation Normal sinus rhythm Normal ECG When compared with ECG of 14-MAY-2023 11:02, No significant change was found Confirmed by KENIA FRAZIER ([id number]) on 08/15/2025 11:04:37 AM GEMUSE 08/14/2025 3:00 PM EST 08/15/2025 11:04 AM EST us Osman Healy NP ECG ORDERABLES Edited Result - Final GEMUSE documented in this encounter Visit Diagnoses Diagnosis Palpitations- Primary Precordial pain Primary hypertension Unspecified essential hypertension documented in this encounter Discontinued Medications Medication Sig Discontinue Reason Start Date End Da te carvediloL (COREG) 3.125 mg tablet TAKE 1 TABLET BY MOUTH TWICE A DAY WITH MEALS Reorder 06/02/2025 08/14/2025 documented as of this encounter Historical Medications * This list may reflect changes made after this encounter. latanoprost (XALATAN) 0.005 % ophthalmic solution Administer 1 drop into both eyes 1 (one) time each day. at bedtime cholecalciferol (VITAMIN D-3) 25 mcg (1,000 unit) tablet Take 1 tablet (1,000 Units total) by mouth 1 (one) time each day. aspirin 81 mg chewable tablet Chew 1 tablet (81 mg total) 1 (one) time each day. added in this encounter Orders Outpatient Referral Count Last Ordered Date Fir st Ordered Date AMB REFERRAL TO CARDIOLOGY 1 08/14/2025 documented in this encounter Additional Health Concerns Assessment Noted Time PHQ-9 Depression Total Score: 0 04/27/20 25 8:31 AM EDT documented as of this encounter Care Teams Assistant Professor Of Dietetics Relationship Specialty Start Date End Date Tor Gomez MD [address] [place] [address] PCP - General Internal Medicine 12/02/18 documented as of this encounter
--- NOTE | 2025-08-15 15:10 | EEG_ITS ---
Reason for Exam: G31.84 Mild cognitive impairment History: recurrent breast cancer, osteopenia, lumbar spinal stenosis, glaucoma, fibromyalgia, depression, anemia - Occasional headaches, short term memory loss with some word finding difficulties, bilateral tinnitus and episodes of brief loss of balance for the past 6 months Medication: aspirin, bupropion HCL XL, memantine, venlafaxine ER Technical Description Photic Stimulation: Completed Hyperventilation: good effort Behavioral State: cooperative State of Consciousness: awake Skull defect: none Sedation: none handedness: right Duration: 30 min 31 sec Description: The waking background activity consists of a well-defined moderate voltage 9 hertz posterior alpha frequency that attenuates well with eye opening while low- voltage fast frequencies and muscle artifacts predominate anteriorly. Brief period of drowsiness is characterized by diffuse theta slowing. No sleep stages are identified. Photic stimulation and hyperventilation are without activation. No focal, lateralizing or paroxysmal discharges seen. Impression: This awake and briefly drowsy EEG is within normal limits [facility]
--- OUTSIDE RECORDS SUMMARY | 2025-08-15 15:28 | XMS_ITS | Clinical Summary ---
Author Organization [facility] Address [address] [place] [address] Care Team Providers Care Support Group Manager Name Role Phone Tor Gomez MD Primary [...] age to complete this topic Care Teams Support Group Manager Relationship Specialty Start Date End Date Tor Gomez MD PCP - General Internal Medicine 03/03/19
--- OUTSIDE RECORDS SUMMARY | 2025-08-15 15:28 | XMS_ITS | Encounter Summary ---
Author Organization [employer] Address [address] [place] [address] Care Team Providers Care Locks Tender Name Role Phone Tor Gomez MD Primary Care Provider Reason for Visit * Reason Onset Date Comments Referral(neruo) 05/12/2025 Encounter Details Date Type Department Care Team ([facility] st Contact Info) Description 05/12/2025 Telephone Internal Medicine - [address] [place] [address] Tor Gomez MD [address] [place] [phone] Social History Tobacco Use Types Packs/Day Years [...] referral can be expedited. Please advise Cb# [phone] documented in this encounter Plan of Treatment Upcoming Encounters Date Type Department Care Team (Late st Contact Info) Description 12/27/2025 10:45 AM EDT Office Visit [facility] Hematology Oncology [address] [place] [phone] Genaro-Adam Macdonald MD [address] [place] [phone] documented as of this encounter Visit Diagnoses Not on filedocumented in this encounter Additional Health Concerns Assessment Noted Time PHQ-9 Depression Total Score: 0 04/27/20 25 8:31 AM EDT documented as of this encounter Care Teams Locks Tender Relationship Specialty Start Date End Date Tor Gomez MD [address] [address] PCP - General Internal Medicine 12/02/18 documented as of this encounter
--- OUTSIDE RECORDS SUMMARY | 2025-08-15 15:28 | XMS_ITS | Encounter Summary ---
Author Organization [employer] Address [address] [place] [address] Care Team Providers Care Mainframe Software Developer Name Role Phone Tor Gomez MD Primary Care Provider [phone] Reason for Referral * Consultation (Routine) - Authorized Specialty Diagnoses / Procedures Referred By Chidi hirsch Referred To Contact Cardiology Diagnoses Palpitations Tor Gomez MD 175 [facility] [address] [place] [address] Phone: tel: fax: [facility] [address] [place] [address] Phone: tel: fax: Referral ID Status Reason Start Date Expiration Date Visits Requested Visits Authorized [id number] Authorized Specialty Services Required 08/02/2026 6 6 Reason for Visit * Reason Onset Date Comments Referral 08/02/2025 Cardiology Insur ance Referral Encounter Details Date Type Department Care Team ([facility] st Contact Info) Description 08/02/2025 Telephone Internal Medicine - [place] [address] [facility] [address] [place] [phone] Tor Gomez MD [address] [place] [phone] Social History Tobacco Use Types Packs/Day Years [...] as of this encounter Progress Notes * Marta Recinos - 08/02/2025 2:49 PM EDT What insurance does the patient have today? Payor: [facility]@/@[facility]@ Referrals cannot be processed if the insurance is not accurate. If the insurance listed above is NO BILLING INFORMATION FOUND FOR THIS ENCOUNTER then the patients correct insurance must be obtainedand registered in [facility] or their referral can not be processed. Name of person calling to request this referral? Fax -Karina Referred To Provider (Include first and last name): FERCHO NPI (if known): [id number] Order/Specialty requested cardiology Chief Complaint (Note: This is not a body part or a procedure): R00.2 Has the patient seen provider for this problem/Dx before? Referred To Provider Address: [address] Referred To Provider Referred To Provider Does patient have an appointment scheduled?: yes If yes, what is the date of the appointment?: 08/14/25 Is this a retro request? no Number of visits requested: 6 Is this appointment related to: MVA or worker compensation? no documented in this encounter Plan of Treatment Upcoming Encounters Date Type Department Care Team (Late st Contact Info) Description 12/27/2025 10:45 AM EDT Office Visit [facility] Hematology Oncology [address] [place] [address] Adam Jang MD [address] [place] [address] Scheduled Referrals Name Type Priority Associated Diagnoses Order Schedule Ambulatory referral to Cardiology Outpatient Referral Routine Palpitations Expected: 08/02/2025, Expires: 08/02/2026 documented as of this encounter Visit Diagnoses Diagnosis Palpitations- Primary documented in this encounter Additional Health Concerns Assessment Noted Time PHQ-9 Depression Total Score: 0 04/27/20 25 8:31 AM EDT documented as of this encounter Care Teams Mainframe Software Developer Relationship Specialty Start Date End Date Tor Gomez MD [address] [place] [id number] PCP - General Internal Medicine 12/02/18 documented as of this encounter
--- OUTSIDE RECORDS SUMMARY | 2025-08-15 15:28 | XMS_ITS | Encounter Summary ---
Author Organization [facility] Address [address] [place] [address] Care Team Providers Care Repeater Chief Name Role Phone Tor Gomez MD Primary Care Provider [phone] Encounter Details Date Type Department Care Team (Late Contact Info) Description 07/11/2025 Results Follow-Up [facility] Hematology Oncology [address] [place] [phone] Adam Jang MD [address] [place] [phone] Social History Tobacco Use Types Packs/Day Years [...] Encounters Date Type Department Care Team (Late Contact Info) Description 12/27/2025 10:45 AM EDT Office Visit [facility] Hematology Oncology [address] [place] [phone] Adam Jang MD [address] [place] [phone] documented as of this encounter Visit Diagnoses Not on filedocumented in this encounter Additional Health Concerns Assessment Noted Time PHQ-9 Depression Total Score: 0 04/27/20 25 8:31 AM EDT documented as of this encounter Care Teams Repeater Chief Relationship Specialty Start Date End Date Tor Gomez MD [address] [place] [address] PCP - General Internal Medicine 12/02/18 documented as of this encounter
--- OUTSIDE RECORDS SUMMARY | 2025-08-15 15:29 | XMS_ITS | Clinical Summary ---
Author Organization [facility] Address [address] [place] [address] Phone Care Team Providers Care Color Control Operator Name Role Phone Tor Gomez MD Primary Care Provider [phone] Allergies Active Allergy Reactions Criticality Noted Date Comments Latex 05/11/2025 Medications venlafaxine XR (EFFEXOR-XR) 75 mg 24 hr capsuleIndicat ions:Major depressive disorder, recurrent, unspecified (CMS/HCC V24) Take 1 capsule (75 mg total) by mouth 1 (one) time each day. 90 capsule 3 04/27/20 25 Active buPROPion SR (WELLBUTRIN SR) 150 mg 12 hr tabletIndicati ons:Major depressive disorder, recurrent, unspecified (CMS/HCC V24) TAKE 1 TABLET BY MOUTH TWICE A DAY 180 each 1 08/08/20 25 Active aspirin 81 mg chewable tablet Chew 1 tablet (81 mg total) 1 (one) time each day. Active cholecalcifero l (VITAMIN D-3) 25 mcg (1,000 unit) tablet Take 1 tablet (1,000 Units total) by mouth 1 (one) time each day. Active latanoprost (XALATAN) 0.005 % ophthalmic solution Administer 1 drop into both eyes 1 (one) time each day. at bedtime Active carvediloL (COREG) 3.125 mg tabletIndicati ons:Palpitatio ns Take 1 tablet (3.125 mg total) by mouth 2 (two) times a day with meals. 180 tablet 3 08/14/20 Active buPROPion SR (WELLBUTRIN SR) 150 mg 12 hr tablet Take 1 tablet (150 mg total) by mouth 2 (two) times a day. 02/24/20 19 025 Discontinued carvediloL (COREG) 3.125 mg tablet TAKE 1 TABLET BY MOUTH TWICE A DAY WITH MEALS 180 tablet 06/02/20 025 Discontinued(Re order) Active Problems Problem Noted Date Diagnosed Date Primary hypertension 11/05/2023 Precordial pain 07/10/2023 Assessment & Plan (08/14/2025 3:34 PM EST): She denies any recent episodes of chest discomfort. She had a previous negative nuclear stress test. Orders: ECG 12 lead Palpitations 07/08/2023 Assessment & Plan (08/14/2025 3:34 PM EST): Patient presenting today for follow-up on her ongoing palpitations. Overall they have improved since starting carvedilol. Her blood pressure is also improved since starting carvedilol. She will continue on 3.125 mg twice daily. She states that the brief palpitations she experiences have not changed in nature since her previous Holter monitor. She will contact the office if she develops new or worsening symptoms. At this time, she can follow-up with cardiology as needed. Encounters Date Type Department Care Team Description 08/14/2025 2:40 PM EST Office Visit [facility] [address] [place] [address] Pearl Perez NP Palpitations (Primary Dx); Precordial pain; Primary hypertension 08/02/2025 Telephone Internal Medicine - [place] [address] [facility] [address] [place] [address] Tor Gomez MD 07/11/2025 Results Follow-Up [facility] Hematology Oncology [address] [place] [address] Adam Chavarria MD 07/06/2025 1:00 PM EDT Office Visit [facility] Hematology Oncology [address] [place] [address] Adam Chavarria MD Normocytic anemia from Last 3 Months Surgical History Surgery [...] Depression, recurrent (CMS/HCC V24) 09/22/2017 DX:Depression, recurrent (HCC); COMMENT: Comments: ( citalopram increased 04/25/15) [employer]IOR [employer]OPER wellness exam supports major depression 03/01/13 Fibromyalgia 03/24/2018 DX:Fibromyalgia Glaucoma 02/25/2010 DX:Glaucoma Lumbar spinal stenosis 05/29/2016 DX:Lumbar spinal stenosis Multiple lung nodules on CT 10/15/2016 DX:M ultiple lung nodules on CT Recurrent breast cancer (CMS /HCC V24, CMS/HCC V28) 03/24/2018 DX:Recurrent breast cancer ( HCC) Osteopenia DX:Osteopenia Social History Tobacco Use Types [...] Pulse 89 08/14/2025 2:49 PM EST Temperature 36.7 C (98 F) 07/06/2025 1:06 PM EDT Respiratory Rate 18 04/27/2025 8:31 AM EDT Oxygen Saturation 99% 08/14/2025 2:49 PM EST Inhaled Oxygen Concentration - - Weight 55.8 kg (123 lb) 08/14/2025 2:49 PM EST Height 149.9 cm (4' 11 ) 08/14/2025 2:49 PM EST Body Mass Index 24.84 08/14/2025 2:49 PM EST Plan of Treatment Upcoming Encounters Date Type Department Care Team (Late st Contact Info) Description 12/27/2025 10:45 AM EDT Office Visit [facility] Hematology Oncology [address] [place] [address] Adam Jang MD [address] [place] [address] Health Maintenance Due Date Last Done Comments DTaP,Tdap,and Td Vaccines (1 - Tdap) 01/20/1964 RSV Immunization Adult Patients (1 - 1-dose 75+ series) 01/20/2019 Falls Risk Assessment 09/18/2022 Social Influencers of Health Screening 09/18/2022 COVID-19 Vaccine ( season) 2025 11/13/2022, 08/05/2021, 01/15/2021, Additional history exists Hypertension/CHF/CAD Annual BMP Blood Test 04/27/2026 04/27/2025, 04/25/2024 Medicare Annual Wellness Visit 04/27/2026 04/27/2025 Cholesterol Screening (Lipid Panel) 04/27/2030 04/27/2025, 04/25/2024 Osteoporosis Screening (Bone Density Screening) 06/16/2033 06/16/2023, 02/25/2021, 02/27/2020, Additional history exists Zoster Vaccines Completed 03/26/2023, 11/2022, 09/27/2013 Pneumococcal Vaccine: 50+ Years Completed 09/30/2023, 09/22/2017, 05/29/2016 Depression Screening Completed 04/27/2025 Influenza Vaccine Completed 08/11/2025, , 09/30/2023, Additional history exists HIB Vaccines Aged Out No longer eligi [...] 3:34 PM EST Precordial pain Primary hypertension [place] PROTEIN ELECTROPHORETIC FRACTIONATION & QUANTITATION SERUM Routine [...] 04/27/2025 8:51 AM EDT Hypercholesterolemi a Hyperglycemia TEX DEXA AXIAL SKELETON Routine 06/16/20 9:57 AM EDT Encounter for screening for osteoporosis from Last 3 Months or Most Recently Relevant to Health Maintenance Results * ECG 12 lead (08/14/2025 3:34 PM EST) Ventricular Rate ECG 90 BPM GEMUSE Atrial Rate 90 BPM GEMUSE P-R Interval 158 ms GEMUSE QRS Duration 64 ms GEMUSE Q-T Interval 346 ms GEMUSE QTc 423 ms GEMUSE P Wave [place] 49 degrees GEMUSE R [place] 64 degrees GEMUSE T [place] 60 degrees GEMUSE ECG Interpretation Normal sinus rhythm Normal ECG When compared with ECG of 14-MAY-2023 11:02, No significant change was found Confirmed by KENIA FRAZIER ([id number]) on 08/15/2025 11:04:37 AM GEMUSE 08/14/2025 3:00 PM EST 08/15/2025 11:04 AM EST us Pearl Perez NP ECG ORDERABLES Edited Result - Final GEMUSE * PATHOLOGIST REVIEW PROTEIN ELECTROPHORESIS (07/06/2025 1:36 PM EDT) Pathologist Interpretation Kirstin Phelan MD 07/10/2025 2:47 PM EDT [facility] Blood Venous blood specimen / Unknown Venipuncture / Unknown 07/06/2025 1:36 PM EDT 07/06/2025 4:34 PM EDT us Subramony Subramonia-Renae MD LAB BLOOD ORDERABLE S Final Result Performing Organization Address City/[facility]/ZIP Co de Phone Number [facility] [address] [place] [address], [place] [phone] * (ABNORMAL) Vitamin B12 and folate (07/06/2025 1:36 PM EDT) [facility] Vitamin B-12 >2,000(H) 250 - 900 pcg/mL LAB CHEMISTRY METHOD 07/06/2025 10:35 PM EDT [facility] Folate >20.0(H) 2.8 - 17.0 ng/ml LAB CHEMISTRY METHOD 07/06/2025 10:35 PM EDT [facility] Blood Venous blood specimen / Unknown Venipuncture / Unknown 07/06/2025 1:36 PM EDT 07/06/2025 4:34 PM EDT Adam Jang MD LAB BLOOD ORDERABLE S Final Result Performing Organization Address City/[facility]/ZIP Co de Phone Number [facility] [address] [place] [address], [place] [phone] * (ABNORMAL) CBC auto differential (07/06/2025 1:36 PM EDT) [facility] WBC 6.6 4.8 - 10.8 K/mcL LAB HEMETOLOGY METHOD 07/06/2025 5:11 PM EDT [facility] RBC 4.00 3.80 - 4.80 M/mcL LAB HEMETOLOGY METHOD 07/06/2025 5:11 PM EDT [facility] Hemoglobin 11.0(L) 11.5 - 16.0 g/dL LAB HEMETOLOGY METHOD 07/06/2025 5:11 PM EDT [facility] Hematocrit 36.2 35.0 - 47.0 % LAB HEMETOLOGY METHOD 07/06/2025 5:[facility] MCV 89.8 79.0 - 98.0 FL LAB HEMETOLOGY METHOD 07/06/2025 5:[facility] MCH 27.3 27.0 - 32.0 pcg LAB HEMETOLOGY METHOD 07/06/2025 5:11 PM [facility] MCHC 30.4(L) 32.0 - 37.0 g/dL LAB HEMETOLOGY METHOD 07/06/2025 5:11 PM EDT [facility] RDW 13.4 11.0 - 15.0 % LAB HEMETOLOGY METHOD 07/06/2025 5:11 PM [facility] Platelets 362 130 - 400 K/mcL LAB HEMETOLOGY METHOD 07/06/2025 5:11 PM [facility] MPV 11.0 7.0 - 11.0 FL LAB HEMETOLOGY METHOD 07/06/2025 5:[facility] NRBC 0.0 <1.0 % LAB HEMETOLOGY METHOD 07/06/2025 5:11 PM [facility] NRBC Absolute 0.00 <0.10 K/mcL LAB HEMETOLOGY METHOD 07/06/2025 5:11 PM [facility] Neutrophils Relative 66.4 % LAB HEMETOLOGY METHOD 07/06/2025 5:11 PM [facility] Lymphocytes Relative 20.8 % LAB HEMETOLOGY METHOD 07/06/2025 5:11 PM [facility] Monocytes Relative 8.2 % LAB HEMETOLOGY METHOD 07/06/2025 5:11 PM [facility] Eosinophils Relative 3.5 % LAB HEMETOLOGY METHOD 07/06/2025 5:11 PM [facility] Basophils Relative 0.8 % LAB HEMETOLOGY METHOD 07/06/2025 5:11 PM EDT [facility] Immature Granulocytes Relative 0.3 % LAB HEMETOLOGY METHOD 07/06/2025 5:11 PM EDT [facility] Neutrophils Absolute 4.38 1.50 - 7.00 K/mcL LAB HEMETOLOGY METHOD 07/06/2025 5:11 PM EDT [facility] Lymphocytes Absolute 1.37 1.00 - 5.00 K/mcL LAB HEMETOLOGY METHOD 07/06/2025 5:11 PM EDT [facility] Monocytes Absolute 0.54 0.20 - 1.00 K/mcL LAB HEMETOLOGY METHOD 07/06/2025 5:11 PM EDT [facility] Eosinophils Absolute 0.23 0.00 - 0.50 K/mcL LAB HEMETOLOGY METHOD 07/06/2025 5:11 PM EDT [facility] Basophils Absolute 0.05 0.00 - 0.20 K/mcL LAB HEMETOLOGY METHOD 07/06/2025 5:11 PM EDT [facility] Immature Granulocytes Absolute 0.02 0.00 - 0.03 K/mcL LAB HEMETOLOGY METHOD 07/06/2025 5:11 PM EDT [facility] Blood Venous blood specimen / Unknown Venipuncture / Unknown 07/06/2025 1:36 PM EDT 07/06/2025 4:38 PM EDT Adam Jang MD LAB BLOOD ORDERABLE S Final Result [facility] [address] [place] [address], * Iron and TIBC (07/06/2025 1:36 PM EDT) Iron 65 40 - 150 mcg/dL LAB CHEMISTRY METHOD 07/06/2025 10:13 PM EDT [facility] TIBC 288 250 - 450 mcg/dL LAB CHEMISTRY METHOD 07/06/2025 10:13 PM EDT [facility] Iron Saturation 23 15 - 50 % LAB CHEMISTRY METHOD 07/06/2025 10:13 PM T [facility] Blood Venous blood specimen / Unknown Venipuncture / Unknown 07/06/2025 1:36 PM EDT 07/06/2025 4:34 PM EDT Anthonyramlouis Jang MD LAB BLOOD ORDERABLE S Final Result [facility] [address] [place] [address], [place] [phone] * Protein electrophoresis, serum (07/06/2025 1:36 PM EDT) Total Protein 6.8 6.0 - 8.0 g/dL LAB CHEMISTRY METHOD 07/10/2025 2:47 PM EDT [facility] Albumin, Serum 3.7 2.9 - 4.1 g/dL LAB CHEMISTRY METHOD 07/10/2025 2:47 PM EDT [facility] Alpha 1 Globulin (g/dL) 0.2 0.1 - 0.5 g/dL LAB CHEMISTRY METHOD 07/10/2025 2:47 PM [facility] Alpha 2 Globulin (g/dL) 0.9 0.7 - 1.5 g/dL LAB CHEMISTRY METHOD 07/10/2025 2:47 PM EDT [facility] Beta (g/dL) 1.0 0.7 - 1.5 g/dL LAB CHEMISTRY METHOD 07/10/2025 2:47 PM EDT [facility] Gamma Globulin (g/dL) 1.0 0.7 - 1.9 g/dL LAB CHEMISTRY METHOD 07/10/2025 2:47 PM [facility] SPEP Interpretation Essentially normal pattern. No M-Eriberto seen. LAB CHEMISTRY METHOD 07/10/2025 2:47 PM EDT [facility] Blood Venous blood specimen / Unknown Venipuncture / Unknown 07/06/2025 1:36 PM EDT 07/06/2025 4:34 PM EDT us Adam Jang MD LAB BLOOD ORDERABLE S Final Result Performing Organization Address [facility] Co de Phone Number [facility] [address] [place] [address], [place] [phone] * Protein, total (07/06/2025 1:36 PM EDT) [facility] Total Protein 6.8 6.0 - 8.0 g/dL LAB CHEMISTRY METHOD 07/06/2025 10:12 PM EDT [facility] Blood Venous blood specimen / Unknown Venipuncture / Unknown 07/06/2025 1:36 PM EDT 07/06/2025 4:34 PM EDT us Adam Jang MD LAB BLOOD ORDERABLE S Final Result Performing Organization Address [facility] de Phone Number [facility] [address] [place] [address], [place] [phone] * (ABNORMAL) Lactate dehydrogenase (07/06/2025 1:36 PM EDT) [facility] LDH 247(H) 120 - 246 unit/L LAB CHEMISTRY METHOD 07/06/2025 10:13 PM EDT [facility] Blood Venous blood specimen / Unknown Venipuncture / Unknown 07/06/2025 1:36 PM EDT 07/06/2025 4:34 PM EDT us Adam Jang MD LAB BLOOD ORDERABLE S Final Result Performing Organization Address [facility] de Phone Number [facility] [address] [place] [address], [place] [phone] * Haptoglobin (07/06/2025 1:36 PM EDT) [facility] Haptoglobin 105 16 - 200 mg/dL LAB CHEMISTRY METHOD 07/06/2025 10:13 PM EDT [facility] Blood Venous blood specimen / Unknown Venipuncture / Unknown 07/06/2025 1:36 PM EDT 07/06/2025 4:34 PM EDT us Adam Jang MD LAB BLOOD ORDERABLE S Final Result Performing Organization Address [facility]/ZIP Co de Phone Number [facility] [address] [place] [address], [place] [phone] * Ferritin (07/06/2025 1:36 PM EDT) [facility] Ferritin 78 8 - 252 ng/mL LAB CHEMISTRY METHOD 07/06/2025 10:13 PM EDT [facility] Blood Venous blood specimen / Unknown Venipuncture / Unknown 07/06/2025 1:36 PM EDT 07/06/2025 4:34 PM EDT us Adam Jang MD LAB BLOOD ORDERABLE S Final Result [facility] [address] [place] [address], [place] [phone] * Lipid panel with reflex to direct LDL (04/27/2025 8:51 AM EDT) [facility] Cholesterol 185 0 - 200 mg/dL LAB CHEMISTRY METHOD 04/27/2025 10:31 AM EDT [facility] Triglycerides 69 0 - 150 mg/dL LAB CHEMISTRY METHOD 04/27/2025 10:31 AM EDT [facility] HDL 77 >=40 mg/dL LAB CHEMISTRY METHOD 04/27/2025 10:31 AM EDT [facility] LDL Calculated 94 0 - 100 mg/dL LAB CHEMISTRY METHOD 04/27/2025 10:31 AM EDT [facility] VLDL Cholesterol Oh 13.8 mg/dL LAB CHEMISTRY METHOD 04/27/2025 10:31 AM T [facility] Non HDL Chol. (LDL+VLDL) 108 <145 mg/dL LAB CHEMISTRY METHOD 04/27/2025 10:31 AM EDT [facility] Chol/HDL Ratio 2.4 0.0 - 4.4 LAB CHEMISTRY METHOD 04/27/2025 10:31 AM T [facility] Blood Venous blood specimen / Unknown Venipuncture / Unknown 04/27/2025 8:51 AM EDT 04/27/2025 8:51 AM EDT us Tor Gomez MD LAB BLOOD ORDERABLES Final Resul t [facility] [address] [place] [address], * (ABNORMAL) Comprehensive metabolic panel (04/27/2025 8:51 AM EDT) Sodium 142 133 - 145 mmol/L LAB CHEMISTRY METHOD 04/27/2025 10:31 AM [facility] Potassium 4.7 3.5 - 5.5 mmol/L LAB CHEMISTRY METHOD 04/27/2025 10:31 AM [facility] Chloride 108 96 - 110 mmol/L LAB CHEMISTRY METHOD 04/27/2025 10:31 AM [facility] CO2 30 21 - 32 mmol/L LAB CHEMISTRY METHOD 04/27/2025 10:31 AM [facility] Anion Gap 4 3 - 11 LAB CHEMISTRY METHOD 04/27/2025 10:31 AM [facility] Glucose 82 70 - 100 mg/dL LAB CHEMISTRY METHOD 04/27/2025 10:31 AM [facility] BUN 26(H) 5 - 25 mg/dL LAB CHEMISTRY METHOD 04/27/2025 10:31 AM [facility] Creatinine 0.80 0.50 - 1.10 mg/dL LAB CHEMISTRY METHOD 04/27/2025 10:31 AM [facility] eGFR 74 >=60 mL/min/1. 73m2 LAB CHEMISTRY METHOD 04/27/2025 10:31 AM [facility] Comment:Calculation based on the Chronic Kidney Disease Epidemiology Collaboration (CKD-EPI) equation refit without adjustment for race. BUN/Creatinine Ratio 32.5 LAB CHEMISTRY METHOD 04/27/2025 10:31 AM [facility] Calcium 9.3 8.5 - 10.5 mg/dL LAB CHEMISTRY METHOD 04/27/2025 10:31 AM [facility] AST (SGOT) 15 10 - 42 unit/L LAB CHEMISTRY METHOD 04/27/2025 10:31 AM [facility] ALT (SGPT) 19 10 - 60 unit/L LAB CHEMISTRY METHOD 04/27/2025 10:31 AM [facility] Alkaline Phosphatase 120 42 - 121 unit/L LAB CHEMISTRY METHOD 04/27/2025 10:31 AM [facility] Total Protein 6.8 6.0 - 8.0 g/dL LAB CHEMISTRY METHOD 04/27/2025 10:31 AM [facility] Albumin 3.8 3.2 - 5.0 g/dL LAB CHEMISTRY METHOD 04/27/2025 10:31 AM [facility] Total Bilirubin 0.4 0.0 - 1.4 mg/dL LAB CHEMISTRY METHOD 04/27/2025 10:31 AM [facility] Blood Venous blood specimen / Unknown Venipuncture / Unknown 04/27/2025 8:51 AM EDT 04/27/2025 8:51 AM EDT us Tor Gomez MD LAB BLOOD ORDERABLES Final Resul t [facility] [address] [place] [address], [place] [phone] * TEX DEXA AXIAL SKELETON (06/16/2023 9:57 AM EDT) Anatomical Region Laterality Modality Mammography 06/12/2023 11:2 9 AM EDT Narrative 06/16/2023 9:57 AM EDT [facility] Diagnostic Imaging Department [address] [place] [address] Patient: KATIEASHLEY /Age/Sex: 1945 - 78 - F Unit#: [id number] Location/Status: [facility] CLI [facility] Ordering Physician: TOR GOMEZ MD [facility] Dexa Axial Skeleton - 06/12/23 - [id number] Report Status:Signed History: Low estrogen state due to menopause. Comparison: 02/25/21 Findings: Bone densitometry is performed utilizing dual energy x-ray absorptiometry (DXA) in the Flexion unit. The lumbar spine and proximal femora [...] 9.3 percent Hip 2.6 percent. IMPRESSION: Osteopenia. [id number] Dictating Physician: STACY ARANDA MD Electronically Signed by: STACY ARANDA MD Dic Date/Time: 06/16/23955 Sign date/Time: 06/16/23956 Procedure Note Stacy Aranda MD - 11/17/2023 [facility] Diagnostic Imaging Department [address] [place] [address] Patient: RAMONE WILSONLINE /Age/Sex: 1945 - 78 - F Unit#: [id number] Location/Status: [facility] Mnemonic/Ordering Site: [facility] Ordering Physician: TOR GOMEZ MD [facility] Dexa Axial Skeleton - 06/12/23 - [id number] Report Status:Signed History: Low estrogen state due to menopause. Comparison: 02/25/21 Findings: Bone densitometry is performed utilizing dual energy x-ray absorptiometry(DXA) in the [employer] unit. The lumbar spine and proximal femora [...] Osteoporotic 9.3percent Hip 2.6 percent. IMPRESSION: Osteopenia. [id number] Dictating Physician: STACY ARANDA MD Electronically Signed by: STACY ARANDA MD Dic Date/Time: 06/16/2356 Sign date/Time: 06/16/23956 Tor Gomez MD IMG BI PROCEDURES Final Result from Last 3 Months or Most Recently Relevant [id number] [employer] Care Teams Color Control Operator Relationship Specialty Start Date End Date Tor Gomez MD [address] [place] [address] [address] [place] [address] PCP - General Internal Medicine 12/02/18
== END 2025-08-15 12:53 | disposition home or self-care (01) ==
LOC: HO.NEURO 12:52
PROVIDERS: PCP Internal Medicine; Visit Provider Psychiatry & Neurology Neurology
DX: G31.84 Mild cognitive impairment of uncertain or unknown etiology (principal)
CPT/HCPCS: 95816

== ENCOUNTER → 2025-08-15 15:10 | Outpatient (BNV) | payer MEDICARE, SELFPAY | PROVIDERS: PCP Internal Medicine; Visit Provider Psychiatry & Neurology Neurology | DX: G31.84 Mild cognitive impairment of uncertain or unknown etiology (principal) | CPT/HCPCS: 95816 ==

== ENCOUNTER 2025-09-05 12:07 | Outpatient (REF) | payer MEDICARE, SELFPAY ==
--- NOTE | ~2025-09-05 | US_ITS ---
CLINICAL HISTORY: G45.9 - Transient cerebral ischemic attack, unspecified Duplex Bilateral Carotid US Technique: Real time sonographic imaging, including color-flow imaging and spectral analysis, was performed by the rug frame mounter. Multiple national account representative static images were saved for review. Comparison: None Findings: No significant plaque within the common carotid arteries. No significant plaque within the carotid bulbs. Waveforms are normal morphology. Peak systolic velocities: Right common carotid artery: 89 cm/s Right internal carotid artery: 90 cm/s ICA/CCA ratio: 0.9 Right external carotid artery: Unremarkable Right vertebral artery flow antegrade. Left common carotid artery: 114 cm/s Left internal carotid artery: 75 cm/s ICA/CCA ratio: 0.54 Left external carotid artery: Unremarkable Left vertebral artery flow antegrade. Impression: 1. Normal carotid velocities, no significant stenosis (0-49% stenosis) Notes: External carotid velocities over 200 cm/s may be a cause of bruit. Interpretations are based on most recent Society of Radiologists in Ultrasound consensus statement. This document has been electronically signed by: Manuel Atkinson MD on 09/05/2025 17:28:39
[2025-09-05 13:41] LABS: Anion Gap 10 (12-20); Blood Urea Nitrogen 20 mg/dL (9-16); Calcium 9.8 mg/dL (8.4-10.2); Carbon Dioxide 32 mmol/L (22-29); Chloride 106 mmol/L (96-108); Estimated Glomerular Filt Rate 53; Potassium 4.3 mmol/L (3.3-5.1); Sodium 144 mmol/L (135-145)
[2025-09-05 14:19] LABS: Folate 13.7 ng/mL (> or = 4.0); Vitamin B12 > 2000 pg/mL (200-900)
--- OUTSIDE RECORDS SUMMARY | 2025-09-05 15:50 | XMS_ITS | Encounter Summary ---
Author Organization [facility] Address [address] [place] [address] Care Team Providers Care Trolley Coach Driver Name Role Phone Tor Gomez MD Primary Care Provider [phone] Encounter Details Date Type Department Care Team (Late Contact Info) Description 07/11/2025 Results Follow-Up [facility] Hematology Oncology [address] [place] [phone] Adam Jang MD [address] [place] [phone] Social History Tobacco Use Types Packs/Day Years [...] Description 12/27/2025 10:45 AM EDT Office Visit [facility] Hematology Oncology [address] [place] [phone] Adam Jang MD [address] [place] [phone] documented as of this encounter Visit Diagnoses Not on filedocumented in this encounter Additional Health Concerns Assessment Noted Time PHQ-9 Depression Total Score: 0 04/27/20 25 8:31 AM EDT documented as of this encounter Care Teams Trolley Coach Driver Relationship Specialty Start Date End Date Tor Gomez MD [address] [place] [address] PCP - General Internal Medicine 12/02/18 documented as of this encounter
--- OUTSIDE RECORDS SUMMARY | 2025-09-05 15:50 | XMS_ITS | Encounter Summary ---
Author Organization [employer] Address [address] [place] [address] Care Team Providers Care Advertising Representative Name Role Phone Tor Gomez MD Primary Care Provider [phone] Reason for Referral * Consultation (Routine) - Authorized Specialty Diagnoses / Procedures Referred By Chidi hirsch Referred To Contact Cardiology Diagnoses Palpitations Tor Gomez MD [address] [facility] [address] [place] [address] Phone: tel: fax: [facility] Cardiology [facility] [address] [place] [address] Phone: tel: fax: Referral ID Status Reason Start Date Expiration Date Visits Requested Visits Authorized [id number] Authorized Specialty Services Required 08/02/2026 6 6 Reason for Visit * Reason Onset Date Comments Referral 08/02/2025 Cardiology Insur ance Referral Encounter Details Date Type Department Care Team (Late st Contact Info) Description 08/02/2025 Telephone Internal Medicine - [place] [address] [place] [phone] Tor Gomez MD [address] [place], [place] [phone] Social History Tobacco Use Types Packs/Day Years [...] insurance does the patient have today? Payor: [email or web address] Referrals cannot be processed if the insurance is not accurate. If the insurance listed above is NO BILLING INFORMATION FOUND FOR THIS ENCOUNTER then the patients correct insurance must be obtainedand registered in [facility] or their referral can not be processed. Name of person calling to request this referral? Fax -Karina Referred To Provider (Include first and last name): FERCHO NPI (if known): [phone] Order/Specialty requested cardiology Chief Complaint (Note: This [...] 12/27/2025 10:45 AM EDT Office Visit [facility] Hematology Oncology [address] [place] [address] Adam Jang MD [address] [place] [address] Scheduled Referrals Name Type Priority Associated Diagnoses Order Schedule Ambulatory referral to Cardiology Outpatient Referral Routine Palpitations Expected: 08/02/2025, Expires: 08/02/2026 documented as of this encounter Visit Diagnoses Diagnosis Palpitations- Primary documented in this encounter Additional Health Concerns Assessment Noted Time PHQ-9 Depression Total Score: 0 04/27/20 25 8:31 AM EDT documented as of this encounter Care Teams Advertising Representative Relationship Specialty Start Date End Date Tor Gomez MD [address] [place] [address] PCP - General Internal Medicine 12/02/18 documented as of this encounter
--- OUTSIDE RECORDS SUMMARY | 2025-09-05 15:50 | XMS_ITS | Clinical Summary ---
Author Organization [facility] Address [address] [place] [address] Phone Care Team Providers Care Concrete Batching Plant Operator Name Role Phone Tor Gomez MD Primary Care Provider [phone] Allergies Active Allergy Reactions Criticality Noted Date [...] Description 08/14/2025 2:40 PM EST Office Visit [facility] [address] [place] [address] Pearl Perez NP Palpitations (Primary Dx); Precordial pain; Primary hypertension 08/02/2025 Telephone Internal Medicine - [place] 175 [facility] [address] [place] [address] Tor Gomez MD 07/11/2025 Results Follow-Up [facility] Hematology Oncology [address] [place] [address] Adam Chavarria MD 07/06/2025 1:00 PM EDT Office Visit [facility] Hematology Oncology [address] [place] [address] Adam Chavarria MD Normocytic anemia [...] (HCC); COMMENT: Comments: ( citalopram increased 04/25/15) RETAIL ASSISTANT STORE MANAGER wellness exam supports major depression 03/01/13 [...] Description 12/27/2025 10:45 AM EDT Office Visit [facility] Hematology Oncology [address] [place] [address] Adam Jang MD [address] [place] [address] Health Maintenance Due Date Last [...] Procedure Name Priority Date/Time Associated Diagnosis Comments EXTERNAL NEUROLOGY REPORT 08/15/2025 ECG 12-LEAD Routine 08/14/2025 3:34 PM EST Precordial pain Primary hypertension HI PROTEIN ELECTROPHORETIC FRACTIONATION & QUANTITATION SERUM Routine [...] Recently Relevant to Health Maintenance Results * External Neurology Report (08/15/2025) us Provider [facility] NEUROLOGY ORDERABLES Fin al Result * ECG 12 lead (08/14/2025 3:34 PM EST) Ventricular Rate ECG 90 BPM GEMUSE Atrial Rate 90 BPM GEMUSE P-R Interval 158 ms GEMUSE QRS Duration 64 ms GEMUSE Q-T Interval 346 ms GEMUSE QTc 423 ms GEMUSE P Wave Snover 49 degrees GEMUSE R Snover 64 degrees GEMUSE T Snover 60 degrees GEMUSE ECG Interpretation Normal sinus rhythm Normal ECG When compared with ECG of 14-MAY-2023 11:02, No significant change was found Confirmed by KENIA FRAZIER ([id number]) on 08/15/2025 11:04:37 AM GEMUSE 08/14/2025 3:00 PM EST 08/15/2025 11:04 AM EST Pearl Perez NP ECG ORDERABLES Edited Result - Final GEMUSE * PATHOLOGIST REVIEW PROTEIN ELECTROPHORESIS (07/06/2025 1:36 PM EDT) Pathologist Interpretation Kirstin Phelan MD 07/10/2025 2:47 PM EDT [facility] Blood Venous blood specimen / Unknown Venipuncture / Unknown 07/06/2025 1:36 PM EDT 07/06/2025 4:34 PM EDT us Adam Jang MD LAB BLOOD ORDERABLE S Final Result Performing Organization Address [facility]/ZIP Co de Phone Number [facility] [address] [place] [address], [place] [phone] * (ABNORMAL) Vitamin B12 and folate (07/06/2025 1:36 PM EDT) [facility] Vitamin B-12 >2,000(H) 250 - 900 pcg/mL LAB CHEMISTRY METHOD 07/06/2025 10:35 PM EDT [facility] Folate >20.0(H) 2.8 - 17.0 ng/ml LAB CHEMISTRY METHOD 07/06/2025 10:35 PM EDT [facility] Blood Venous blood specimen / Unknown Venipuncture / Unknown 07/06/2025 1:36 PM EDT 07/06/2025 4:34 PM EDT us Adam Jang MD LAB BLOOD ORDERABLE S Final Result Performing Organization Address [facility]/ZIP Co de Phone Number [facility] [address] [place] [address], [place] [phone] * (ABNORMAL) CBC auto differential (07/06/2025 1:36 PM EDT) [facility] WBC 6.6 4.8 - 10.8 K/[facility] LAB HEMETOLOGY METHOD 07/06/2025 5:11 PM EDT [facility] RBC 4.00 3.80 - 4.80 M/mcL LAB HEMETOLOGY METHOD 07/06/2025 5:11 PM EDT [facility] Hemoglobin 11.0(L) 11.5 - 16.0 g/dL LAB HEMETOLOGY METHOD 07/06/2025 5:11 PM EDT [facility] Hematocrit 36.2 35.0 - 47.0 % LAB HEMETOLOGY METHOD 07/06/2025 5:11 PM EDT [facility] MCV 89.8 79.0 - 98.0 FL LAB HEMETOLOGY METHOD 07/06/2025 5:11 PM EDT [facility] MCH 27.3 27.0 - 32.0 pcg LAB HEMETOLOGY METHOD 07/06/2025 5:11 PM EDT [facility] MCHC 30.4(L) 32.0 - 37.0 g/dL LAB HEMETOLOGY METHOD 07/06[facility]2025 [facility] RDW 13.4 11.0 - 15.0 % LAB HEMETOLOGY METHOD 07/06/2025 5:[facility] Platelets 362 130 - 400 K/mcL LAB HEMETOLOGY METHOD 07/06/2025 5:11 PM EDT [facility] MPV 11.0 7.0 - 11.0 FL LAB HEMETOLOGY METHOD 07/06/2025 5:[facility] NRBC 0.0 <1.0 % LAB HEMETOLOGY METHOD 07/06/2025 5:11 [facility] NRBC Absolute 0.00 <0.10 K/mcL LAB HEMETOLOGY METHOD 07/06/2025 5:11 PM EDT [facility] Neutrophils Relative 66.4 % LAB HEMETOLOGY METHOD 07/06/2025 5:11 PM EDT [facility] Lymphocytes Relative 20.8 % LAB HEMETOLOGY METHOD 07/06/2025 5:11 PM EDT [facility] Monocytes Relative 8.2 % LAB HEMETOLOGY METHOD 07/06/2025 5:11 PM EDT [facility] Eosinophils Relative 3.5 % LAB HEMETOLOGY METHOD 07/06/2025 5:11 PM EDT [facility] Basophils Relative 0.8 % LAB HEMETOLOGY METHOD 07/06/2025 5:11 PM EDT [facility] Immature Granulocytes Relative 0.3 % LAB HEMETOLOGY METHOD 07/06/2025 5:11 PM EDT [facility] Neutrophils Absolute 4.38 1.50 - 7.00 K/mcL LAB HEMETOLOGY METHOD 07/06/2025 5:11 PM EDT [facility] Lymphocytes Absolute 1.37 1.00 - 5.00 K/mcL LAB HEMETOLOGY METHOD 07/06/2025 5:11 PM EDT [facility] Monocytes Absolute 0.54 0.20 - 1.00 K/mcL LAB HEMETOLOGY METHOD 07/06/2025 5:11 PM EDT [facility] Eosinophils Absolute 0.23 0.00 - 0.50 K/mcL LAB HEMETOLOGY METHOD 07/06/2025 5:11 PM EDT [facility] Basophils Absolute 0.05 0.00 - 0.20 K/mcL LAB HEMETOLOGY METHOD 07/06/2025 5:11 PM EDT [facility] Immature Granulocytes Absolute 0.02 0.00 - 0.03 K/mcL LAB HEMETOLOGY METHOD 07/06/2025 5:11 PM EDT [facility] Blood Venous blood specimen / Unknown Venipuncture / Unknown 07/06/2025 1:36 PM EDT 07/06/2025 4:38 PM EDT us Subramlouis Jang MD LAB BLOOD ORDERABLE S Final Result [facility] [address] [place] [address], * Iron and TIBC (07/06/2025 1:36 PM EDT) Pathologist [facility] Iron 65 40 - 150 mcg/dL LAB CHEMISTRY METHOD 07/06/2025 10:13 PM EDT [facility] TIBC 288 250 - 450 mcg/dL LAB CHEMISTRY METHOD 07/06/2025 10:13 PM EDT [facility] Iron Saturation 23 15 - 50 % LAB CHEMISTRY METHOD 07/06/2025 10:13 PM EDT [facility] Blood Venous blood specimen / Unknown Venipuncture / Unknown 07/06/2025 1:36 PM EDT 07/06/2025 4:34 PM EDT Adam Jang MD LAB BLOOD ORDERABLE S Final Result [facility] [address] [place] [address], * Protein electrophoresis, serum (07/06/2025 1:36 PM EDT) [facility] Total Protein 6.8 6.0 - 8.0 g/dL LAB CHEMISTRY METHOD 07/10/2025 2:47 PM EDT [facility] Albumin, Serum 3.7 2.9 - 4.1 g/dL LAB CHEMISTRY METHOD 07/10/2025 2:47 PM EDT [facility] Alpha 1 Globulin (g/dL) 0.2 0.1 - 0.5 g/dL LAB CHEMISTRY METHOD 07/10/2025 2:47 PM EDT [facility] Alpha 2 Globulin (g/dL) 0.9 0.7 - 1.5 g/dL LAB CHEMISTRY METHOD 07/10/2025 2:47 PM EDT [facility] Beta (g/dL) 1.0 0.7 - 1.5 g/dL LAB CHEMISTRY METHOD 07/10/2025 2:47 PM EDT [facility] Gamma Globulin (g/dL) 1.0 0.7 - 1.9 g/dL LAB CHEMISTRY METHOD 07/10/2025 2:47 PM EDT [facility] SPEP Interpretation Essentially normal pattern. No M-Eriberto seen. LAB CHEMISTRY METHOD 07/10/2025 2:47 PM EDT [facility] Blood Venous blood specimen / Unknown Venipuncture / Unknown 07/06/2025 1:36 PM EDT 07/06/2025 4:34 PM EDT us Adam Jang MD LAB BLOOD ORDERABLE S Final Result Performing Organization Address [facility]/ZIP Co de Phone Number [facility] [address] [place] [address], [place] [phone] * Protein, total (07/06/2025 1:36 PM EDT) Pathologist [facility] Total Protein 6.8 6.0 - 8.0 g/dL LAB CHEMISTRY METHOD 07/06/2025 10:12 PM EDT [facility] Blood Venous blood specimen / Unknown Venipuncture / Unknown 07/06/2025 1:36 PM EDT 07/06/2025 4:34 PM EDT us Adam Jang MD LAB BLOOD ORDERABLE S Final Result Performing Organization Address [facility]/ZIP Co de Phone Number [facility] [address] [place] [address], [place] [phone] * (ABNORMAL) Lactate dehydrogenase (07/06/2025 1:36 PM EDT) LDH 247(H) 120 - 246 unit/L LAB CHEMISTRY METHOD 07/06/2025 10:13 PM EDT [facility] Blood Venous blood specimen / Unknown Venipuncture / Unknown 07/06/2025 1:36 PM EDT 07/06/2025 4:34 PM EDT us Adam Jang MD LAB BLOOD ORDERABLE S Final Result Performing Organization Address [facility]/ZIP Co de Phone Number [facility] [address] [place] [address], [place] [phone] * Haptoglobin (07/06/2025 1:36 PM EDT) Haptoglobin 105 16 - 200 mg/dL LAB CHEMISTRY METHOD 07/06/2025 10:13 PM EDT [facility] Blood Venous blood specimen / Unknown Venipuncture / Unknown 07/06/2025 1:36 PM EDT 07/06/2025 4:34 PM EDT us Adam Jang MD LAB BLOOD ORDERABLE S Final Result Performing Organization Address [facility] Co de Phone Number [facility] [address] [place] [address], [place] [phone] * Ferritin (07/06/2025 1:36 PM EDT) Ferritin 78 8 - 252 ng/mL LAB CHEMISTRY METHOD 07/06/2025 10:13 PM EDT [facility] Blood Venous blood specimen / Unknown Venipuncture / Unknown 07/06/2025 1:36 PM EDT 07/06/2025 4:34 PM EDT us Adam Jang MD LAB BLOOD ORDERABLE S Final Result Performing Organization Address [facility] Co de Phone Number [facility] [address] [place] [address], [place] [phone] * Lipid panel with reflex to direct LDL (04/27/2025 8:51 AM EDT) Cholesterol 185 0 - 200 mg/dL LAB CHEMISTRY METHOD 04/27/2025 10:31 AM EDT [facility] Triglycerides 69 0 - 150 mg/dL LAB CHEMISTRY METHOD 04/27/2025 10:31 AM EDT [facility] HDL 77 >=40 mg/dL LAB CHEMISTRY METHOD 04/27/2025 10:31 AM EDT [facility] LDL Calculated 94 0 - 100 mg/dL LAB CHEMISTRY METHOD 04/27/2025 10:31 AM EDT [facility] VLDL Cholesterol Oh 13.8 mg/dL LAB CHEMISTRY METHOD 04/27/2025 10:31 AM T [facility] Non HDL Chol. (LDL+VLDL) 108 <145 mg/dL LAB CHEMISTRY METHOD 04/27/2025 10:31 AM T [facility] Chol/HDL Ratio 2.4 0.0 - 4.4 LAB CHEMISTRY METHOD 04/27/2025 10:31 AM [facility] Blood Venous blood specimen / Unknown Venipuncture / Unknown 04/27/2025 8:51 AM EDT 04/27/2025 8:51 AM EDT us Tor Gomez MD LAB BLOOD ORDERABLES Final Resul t [facility] [address] [place] [address], * (ABNORMAL) Comprehensive metabolic panel (04/27/2025 8:51 AM EDT) Sodium 142 133 - 145 mmol/L LAB CHEMISTRY METHOD 04/27/2025 10:31 AM T [facility] Potassium 4.7 3.5 - 5.5 mmol/L LAB CHEMISTRY METHOD 04/27/2025 10:31 AM [facility] Chloride 108 96 - 110 mmol/L LAB CHEMISTRY METHOD 04/27/2025 10:31 AM T [facility] CO2 30 21 - 32 mmol/L LAB CHEMISTRY METHOD 04/27/2025 10:31 AM [facility] Anion Gap 4 3 - 11 LAB CHEMISTRY METHOD 04/27/2025 10:31 AM [facility] Glucose 82 70 - 100 mg/dL LAB CHEMISTRY METHOD 04/27/2025 10:31 AM [facility] BUN 26(H) 5 - 25 mg/dL LAB CHEMISTRY METHOD 04/27/2025 10:31 AM [facility] Creatinine 0.80 0.50 - 1.10 mg/dL LAB CHEMISTRY METHOD 04/27/2025 10:31 AM [facility] eGFR 74 >=60 mL/min/1. 73m2 LAB CHEMISTRY METHOD 04/27/2025 10:31 AM [facility] Comment:Calculation based on the Chronic Kidney Disease Epidemiology Collaboration (CKD-EPI) equation refit without adjustment for race. BUN/Creatinine Ratio 32.5 LAB CHEMISTRY METHOD 04/27/2025 10:31 AM [facility] Calcium 9.3 8.5 - 10.5 mg/dL LAB CHEMISTRY METHOD 04/27/2025 10:31 AM [facility] AST (SGOT) 15 10 - 42 unit/L LAB CHEMISTRY METHOD 04/27/2025 10:31 AM [facility] ALT (SGPT) 19 10 - 60 unit/L LAB CHEMISTRY METHOD 04/27/2025 10:31 AM [facility] Alkaline Phosphatase 120 42 - 121 unit/L LAB CHEMISTRY METHOD 04/27/2025 10:31 AM [facility] Total Protein 6.8 6.0 - 8.0 g/dL LAB CHEMISTRY METHOD 04/27/2025 10:31 AM [facility] Albumin 3.8 3.2 - 5.0 g/dL LAB CHEMISTRY METHOD 04/27/2025 10:31 AM [facility] Total Bilirubin 0.4 0.0 - 1.4 mg/dL LAB CHEMISTRY METHOD 04/27/2025 10:31 AM EDT [facility] Blood Venous blood specimen / Unknown Venipuncture / Unknown 04/27/2025 8:51 AM EDT 04/27/2025 8:51 AM EDT us Tor Gomez MD LAB BLOOD ORDERABLES Final Resul t [facility] [address] [place] [address], [place] [phone] * STAN DEXA AXIAL SKELETON (06/16/2023 9:57 AM EDT) Anatomical Region Laterality Modality Mammography 06/12/2023 11:2 9 AM EDT Narrative 06/16/2023 9:57 AM EDT [facility] Diagnostic Imaging Department [address] [place] [address] Patient: ASHLEY WILSON/Age/Sex: 1945 - 78 - F Unit#: [id number] Location/Status: [facility]/REG CLI Mnemonic/Ordering Site: [facility] Ordering Physician: TOR GOMEZ MD Stan Dexa Axial Skeleton - 06/12/23 - 1153 Report Status:Signed History: Low estrogen state due to menopause. Comparison: 02/25/21 Findings: Bone densitometry is performed utilizing dual energy x-ray absorptiometry (DXA) in the [employer] unit. The lumbar spine and proximal femora [...] 9.3 percent Hip 2.6 percent. IMPRESSION: Osteopenia. [id number] Dictating Physician: STACY ARANDA MD Electronically Signed by: STACY ARANDA MD Dic Date/Time: 06/16/23955 Sign date/Time: 06/16/23956 Procedure Note Stacy Aranda MD - 11/17/2023 [facility] Diagnostic Imaging Department [address] [place] [address] Patient: RAMONE WILSONLINE /Age/Sex: 1945 - 78 - F Unit#: [id number] [facility] Ordering Physician: TOR GOMEZ MD Stan Dexa Axial Skeleton - 06/12/23 - 1153 Report Status:Signed History: Low estrogen state due to menopause. Comparison: 02/25/21 Findings: Bone densitometry is performed utilizing dual energy x-ray absorptiometry(DXA) in the [employer] unit. The lumbar spine and proximal femora [...] Osteoporotic 9.3percent Hip 2.6 percent. IMPRESSION: Osteopenia. [id number] Dictating Physician: STACY ARANDA MD Electronically Signed by: STACY ARANDA MD Dic Date/Time: 06/16/2356 Sign date/Time: 06/16/23956 Tor Gomez MD IMG BI PROCEDURES Final Result from Last 3 Months or Most Recently Relevant to Health Maintenance Insurance [employer] Care Teams Concrete Batching Plant Operator Relationship Specialty Start Date End Date Tor Gomez MD [address] [place] [address] [phone] PCP - General Internal Medicine 12/02/18
--- OUTSIDE RECORDS SUMMARY | 2025-09-05 15:50 | XMS_ITS | Clinical Summary ---
Author Organization [facility] Address [address] [place] [address] Care Team Providers Care Religious Education Director Name Role Phone Tor Gomez MD Primary [...] age to complete this topic Care Teams Religious Education Director Relationship Specialty Start Date End Date Tor Gomez MD PCP - General Internal Medicine 03/03/19
--- OUTSIDE RECORDS SUMMARY | 2025-09-05 15:50 | XMS_ITS | Encounter Summary ---
Author Organization [facility] Address [address] [place] [address] Care Team Providers Care Environmental Education Specialist Name Role Phone Tor Gomez MD Primary Care Provider [phone] Reason for Visit * Reason Onset Date Comments Referral(neruo) 05/12/2025 Encounter Details Date Type Department Care Team ([facility] st Contact Info) Description 05/12/2025 Telephone Internal Medicine - [place] 175 [facility] [address] [place] [phone] Tor Gomez MD 175 [facility] [address] [place], [place] [id number] Social History Tobacco Use Types Packs/Day Years [...] referral can be expedited. Please advise Cb# [phone] documented in this encounter Plan of Treatment Upcoming Encounters Date Type Department Care Team (Late st Contact Info) Description 12/27/2025 10:45 AM EDT Office Visit [facility] Hematology Oncology [address] [place] [phone] Genaro-Adam Macdonald MD [address] [place] [phone] documented as of this encounter Visit Diagnoses Not on filedocumented in this encounter Additional Health Concerns Assessment Noted Time PHQ-9 Depression Total Score: 0 04/27/20 25 8:31 AM EDT documented as of this encounter Care Teams Environmental Education Specialist Relationship Specialty Start Date End Date Tor Gomez MD [address] [address] PCP - General Internal Medicine 12/02/18 documented as of this encounter
== END 2025-09-05 12:08 | disposition home or self-care (01) ==
LOC: HO.US 12:07
PROVIDERS: PCP Internal Medicine; Visit Provider Psychiatry & Neurology Neurology
DX: G45.9 Transient cerebral ischemic attack, unspecified (principal); G31.84 Mild cognitive impairment of uncertain or unknown etiology
CPT/HCPCS: 36415; 80048; 82607; 82746; 84443; 93880

== ENCOUNTER → 2025-09-05 12:25 | Outpatient (BNV) | payer MEDICARE, SELFPAY | PROVIDERS: PCP Internal Medicine; Visit Provider Radiology Diagnostic Radiology | DX: G45.9 Transient cerebral ischemic attack, unspecified (principal) | CPT/HCPCS: 93880 ==

== ENCOUNTER 2025-09-16 08:03 | Outpatient (REF) | payer MEDICARE, SELFPAY ==
--- NOTE | ~2025-09-16 | MR_ITS ---
EXAMINATION: MR BRAIN WITHOUT IV CONTRAST HISTORY: R27.0 - Ataxia, unspecified TECHNIQUE: Sagittal T1, coronal FLAIR, and axial T1, FLAIR, T2, gradient echo, and diffusion weighted MR images of the brain were obtained. COMPARISON: There are no prior studies available for comparison. FINDINGS: The pituitary is normal in size. The cerebellar tonsils are normally located. There is diffuse prominence of the ventricular system and cortical sulci, consistent with atrophy. Periventricular and subcortical white matter hyperintensities are noted on the FLAIR and T2-weighted images which are nonspecific, but often seen in the setting of small vessel ischemic disease. There is no mass effect or midline shift. There are multiple punctate foci of hemosiderin in the bilateral posterior temporal lobes and cerebellar hemispheres. No intra or extra-axial fluid collections are identified. There are no foci of restricted diffusion. Normal vascular flow voids are noted in the basilar and carotid arteries. The visualized paranasal sinuses are clear. MR/MR head/brain wo con IMPRESSION: Atrophy and findings suggestive of small vessel ischemic disease of the white matter. Multiple punctate foci of hemosiderin in the bilateral posterior temporal lobes and cerebellar hemispheres. Findings are compatible with remote microhemorrhages which can be seen in the setting of small vessel disease, hypertension, and cerebral amyloid angiopathy. No acute infarct. Electronically signed by: Yifan Ashton MD 09/18/2025 08:03 AM [facility]
--- OUTSIDE RECORDS SUMMARY | 2025-09-16 08:06 | XMS_ITS | Encounter Summary ---
Author Organization [facility] Address [address] [place] [address] Care Team Providers Care Gardening Manager Name Role Phone Tor Gomez MD Primary Care Provider [phone] Reason for Visit * Reason Onset Date Comments Referral(neruo) 05/12/2025 Encounter Details Date Type Department Care Team ([facility] st Contact Info) Description 05/12/2025 Telephone Internal Medicine - [place] 175 [facility] [address] [place] [phone] Tor Gomez MD 175 [facility] 200 [place], [place] [phone] Social History Tobacco Use Types Packs/Day Years [...] referral can be expedited. Please advise Cb# [phone] documented in this encounter Plan of Treatment Upcoming Encounters Date Type Department Care Team (Late st Contact Info) Description 12/27/2025 10:45 AM EDT Office Visit [facility] Hematology Oncology [address] [place] [phone] Genaro-Adam Macdonald MD [address] [place] [phone] documented as of this encounter Visit Diagnoses Not on filedocumented in this encounter Additional Health Concerns Assessment Noted Time PHQ-9 Depression Total Score: 0 04/27/20 25 8:31 AM EDT documented as of this encounter Care Teams Gardening Manager Relationship Specialty Start Date End Date Tor Gomez MD [address] [address] PCP - General Internal Medicine 12/02/18 documented as of this encounter
--- OUTSIDE RECORDS SUMMARY | 2025-09-16 08:06 | XMS_ITS | Clinical Summary ---
Author Organization [facility] Address [address] [place] [address] Phone Care Team Providers Care Nuclear Equipment Research Engineer Name Role Phone Tor Gomez MD Primary Care Provider [phone] Allergies Active Allergy Reactions Criticality Noted Date Comments Latex 05/11/2025 Medications venlafaxine XR (EFFEXOR-XR) 75 mg 24 hr capsuleIndicatio ns:Major depressive disorder, recurrent, unspecified (CMS/HCC V24) Take 1 capsule (75 mg total) by mouth 1 (one) time each day. 90 capsule 3 5 Active buPROPion SR (WELLBUTRIN SR) 150 mg 12 hr tabletIndication s:Major depressive disorder, recurrent, unspecified (CMS/HCC V24) TAKE 1 TABLET BY MOUTH TWICE A DAY 180 each 1 5 Active aspirin 81 mg chewable tablet Chew 1 tablet (81 mg total) 1 (one) time each day. Active cholecalciferol (VITAMIN D-3) 25 mcg (1,000 unit) tablet Take 1 tablet (1,000 Units total) by mouth 1 (one) time each day. Active latanoprost (XALATAN) 0.005 % ophthalmic solution Administer 1 drop into both eyes 1 (one) time each day. at bedtime Active carvediloL (COREG) 3.125 mg tabletIndication s:Palpitations Take 1 tablet (3.125 mg total) by mouth 2 (two) times a day with meals. 180 tablet 3 Active Active Problems Problem Noted Date Diagnosed [...] Description 08/14/2025 2:40 PM EST Office Visit [facility] Cardiology [address] [place] [phone] Pearl Perez NP Palpitations (Primary Dx); Precordial pain; Primary hypertension 08/02/2025 Telephone Internal Medicine - [place] [facility] [address] [place] [address] Tor Gomez MD 07/11/2025 Results Follow-Up [facility] Hematology Oncology [address] [place] [address] Anthonyramonia-Iy Adam lee MD 07/06/2025 1:00 PM EDT Office Visit 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 03/01/13 Fibromyalgia 03/24/2018 DX:Fibromyalgia Glaucoma 02/25/2010 DX:Glaucoma Lumbar spinal stenosis 05/29/2016 DX:Lumbar spinal stenosis Multiple lung nodules on CT 10/15/2016 DX:M ultiple lung nodules on CT Recurrent breast cancer (CMS /HCC V24, CMS/[facility] V28) 03/24/2018 DX:Recurrent breast cancer ( [facility]) Osteopenia DX:Osteopenia Social History Tobacco Use Types [...] [facility] [address] [place] [address] Adam Jang MD [address] [place] [phone] Health Maintenance Due Date Last Done Comments [...] Name Priority Date/Time Associated Diagnosis Comments EXTERNAL CLINICAL LAB 09/05/2025 EXTERNAL VASCULAR ULTRASOUND 09/05/2025 EXTERNAL VASCULAR ULTRASOUND 09/05/2025 EXTERNAL NEUROLOGY REPORT 08/15/2025 ECG 12-LEAD Routine 08/14/2025 3:34 PM EST Precordial pain Primary hypertension [place] PROTEIN ELECTROPHORETIC FRACTIONATION & QUANTITATION SERUM Routine [...] Relevant to Health Maintenance Results * External Vascular Ultrasound (09/05/2025) Only the most recent of2 resultswithin the time period is included. Anatomical Region Laterality Modality Ultrasound [facility] CV VASCULAR PROCEDURES F inal Result * External clinical lab (09/05/2025) [facility] LAB BLOOD ORDERABLES Fin al Result * External Neurology Report (08/15/2025) [facility] NEUROLOGY ORDERABLES Fin al Result * ECG [...] PM EST 08/15/2025 11:04 AM EST Pearl Peerz NP ECG ORDERABLES Edited Result - Final GEMUSE * PATHOLOGIST REVIEW PROTEIN ELECTROPHORESIS (07/06/2025 1:36 PM EDT) Pathologist Interpretation Kirstin Phelan MD 07/10/2025 2:47 PM EDT [facility] Blood Venous blood specimen / Unknown Venipuncture / Unknown 07/06/2025 1:36 PM EDT 07/06/2025 4:34 PM EDT us Adam Jang MD LAB BLOOD ORDERABLE S Final Result Performing Organization Address [facility] Co de Phone Number [facility] [address] [place] [address], [place] [phone] * (ABNORMAL) Vitamin B12 and folate (07/06/2025 1:36 PM EDT) [facility] Vitamin B-12 >2,000(H) 250 - 900 pcg/mL LAB CHEMISTRY METHOD 07/06/2025 10:35 PM EDT [facility] Folate >20.0(H) 2.8 - 17.0 ng/ml LAB CHEMISTRY METHOD 07/06/2025 10:35 PM EDT [facility] Blood Venous blood specimen / Unknown Venipuncture / Unknown 07/06/2025 1:36 PM EDT 07/06/2025 4:34 PM EDT us Adam Jang MD LAB BLOOD ORDERABLE S Final Result Performing Organization Address [facility] Co de Phone Number [facility] [address] [place] [address], [place] [phone] * (ABNORMAL) CBC auto differential (07/06/2025 1:36 PM EDT) Pathologist [facility] WBC 6.6 4.8 - 10.8 K/[facility] LAB HEMETOLOGY METHOD 07/06/2025 5:11 PM EDT [facility] RBC 4.00 3.80 - 4.80 M/[facility] LAB HEMETOLOGY METHOD 07/06/2025 5:11 PM EDT [facility] Hemoglobin 11.0(L) 11.5 - 16.0 g/dL LAB HEMETOLOGY METHOD 07/06/2025 5:[facility] Hematocrit 36.2 35.0 - 47.0 % LAB HEMETOLOGY METHOD 07/06/2025 5:11 [facility] MCV 89.8 79.0 - 98.0 FL LAB HEMETOLOGY METHOD 07/06/2025 5:11 PM EDT [facility] MCH 27.3 27.0 - 32.0 pcg LAB HEMETOLOGY METHOD 07/06/2025 5:11 PM [facility] MCHC 30.4(L) 32.0 - 37.0 g/dL LAB HEMETOLOGY METHOD 07/06/2025 5:11 PM [facility] RDW 13.4 11.0 - 15.0 % LAB HEMETOLOGY METHOD 07/06/2025 5:11 [facility] Platelets 362 130 - 400 K/mcL LAB HEMETOLOGY METHOD 07/06/2025 5:11 PM [facility] MPV 11.0 7.0 - 11.0 FL LAB HEMETOLOGY METHOD 07/06/2025 5:11 PM [facility] NRBC 0.0 <1.0 % LAB HEMETOLOGY METHOD 07/06/2025 5:11 PM [facility] NRBC Absolute 0.00 <0.10 K/mcL LAB HEMETOLOGY METHOD 07/06/2025 5:11 PM [facility] Neutrophils Relative 66.4 % LAB HEMETOLOGY METHOD 07/06/2025 5:11 PM [facility] Lymphocytes Relative 20.8 % LAB HEMETOLOGY METHOD 07/06/2025 5:11 PM [facility] Monocytes Relative 8.2 % LAB HEMETOLOGY METHOD 07/06/2025 5:11 PM EDT [facility] Eosinophils Relative 3.5 % LAB HEMETOLOGY METHOD 07/06/2025 5:11 PM EDT [facility] Basophils Relative 0.8 % LAB HEMETOLOGY METHOD 07/06/2025 5:11 PM EDT [facility] Immature Granulocytes Relative 0.3 % LAB HEMETOLOGY METHOD 07/06/2025 5:11 PM EDT [facility] Neutrophils Absolute 4.38 1.50 - 7.00 K/mcL LAB HEMETOLOGY METHOD 07/06/2025 5:11 PM EDT [facility] Lymphocytes Absolute 1.37 1.00 - 5.00 K/mcL LAB HEMETOLOGY METHOD 07/06/2025 5:11 PM EDT [facility] Monocytes Absolute 0.54 0.20 - 1.00 K/mcL LAB HEMETOLOGY METHOD 07/06/2025 5:11 PM EDT [facility] Eosinophils Absolute 0.23 0.00 - 0.50 K/mcL LAB HEMETOLOGY METHOD 07/06/2025 5:11 PM EDT [facility] Basophils Absolute 0.05 0.00 - 0.20 K/mcL LAB HEMETOLOGY METHOD 07/06/2025 5:11 PM EDT [facility] Immature Granulocytes Absolute 0.02 0.00 - 0.03 K/mcL LAB HEMETOLOGY METHOD 07/06/2025 5:11 PM EDT [facility] Blood Venous blood specimen / Unknown Venipuncture / Unknown 07/06/2025 1:36 PM EDT 07/06/2025 4:38 PM EDT us Subkaveh Jang MD LAB BLOOD ORDERABLE S Final Result [facility] [address] [place] [address], [place] [phone] * Iron and TIBC (07/06/2025 1:36 PM EDT) [facility] Iron 65 40 - 150 mcg/dL LAB CHEMISTRY METHOD 07/06/2025 10:13 PM EDT [facility] TIBC 288 250 - 450 mcg/dL LAB CHEMISTRY METHOD 07/06/2025 10:13 PM EDT [facility] Iron Saturation 23 15 - 50 % LAB CHEMISTRY METHOD 07/06/2025 10:13 PM EDT [facility] Blood Venous blood specimen / Unknown Venipuncture / Unknown 07/06/2025 1:36 PM EDT 07/06/2025 4:34 PM EDT us Adam Jang MD LAB BLOOD ORDERABLE S Final Result [facility] [address] [place] [address], [place] [phone] * Protein electrophoresis, serum (07/06/2025 1:36 PM EDT) [facility] Total Protein 6.8 6.0 - 8.0 g/dL LAB CHEMISTRY METHOD 07/10/2025 2:47 PM EDT [facility] Albumin, Serum 3.7 2.9 - 4.1 g/dL LAB CHEMISTRY METHOD 07/10/2025 2:47 PM EDT [facility] Alpha 1 Globulin (g/dL) 0.2 0.1 - 0.5 g/dL LAB CHEMISTRY METHOD 07/10/2025 2:47 PM EDT [facility] Alpha 2 Globulin (g/dL) 0.9 0.7 - 1.5 g/dL LAB CHEMISTRY METHOD 07/10/2025 2:47 PM EDT [facility] Beta (g/dL) 1.0 0.7 - 1.5 g/dL LAB CHEMISTRY METHOD 07/10/2025 2:47 PM EDT [facility] Gamma Globulin (g/dL) 1.0 0.7 - 1.9 g/dL LAB CHEMISTRY METHOD 07/10/2025 2:47 PM EDT [facility] SPEP Interpretation Essentially normal pattern. No M-Eriberto seen. LAB CHEMISTRY METHOD 07/10/2025 2:47 PM EDT [facility] Blood Venous blood specimen / Unknown Venipuncture / Unknown 07/06/2025 1:36 PM EDT 07/06/2025 4:34 PM EDT us Adam Jang MD LAB BLOOD ORDERABLE S Final Result Performing Organization Address [facility]/ZIP Co de Phone Number [facility] [address] [place] [address], * Protein, total (07/06/2025 1:36 PM EDT) Total Protein 6.8 6.0 - 8.0 g/dL LAB CHEMISTRY METHOD 07/06/2025 10:12 PM EDT [facility] Blood Venous blood specimen / Unknown Venipuncture / Unknown 07/06/2025 1:36 PM EDT 07/06/2025 4:34 PM EDT us Adam Jang MD LAB BLOOD ORDERABLE S Final Result [facility] [address] [place] [address], [place] [phone] * (ABNORMAL) Lactate dehydrogenase (07/06/2025 1:36 PM EDT) LDH 247(H) 120 - 246 unit/L LAB CHEMISTRY METHOD 07/06/2025 10:13 PM EDT [facility] Blood Venous blood specimen / Unknown Venipuncture / Unknown 07/06/2025 1:36 PM EDT 07/06/2025 4:34 PM EDT us Adam Jang MD LAB BLOOD ORDERABLE S Final Result Performing Organization Address [facility]/ZIP Co de Phone Number [facility] [address] [place] [address], [place] [phone] * Haptoglobin (07/06/2025 1:36 PM EDT) Pathologist [facility] Haptoglobin 105 16 - 200 mg/dL LAB CHEMISTRY METHOD 07/06/2025 10:13 PM EDT [facility] Blood Venous blood specimen / Unknown Venipuncture / Unknown 07/06/2025 1:36 PM EDT 07/06/2025 4:34 PM EDT us Adam Jang MD LAB BLOOD ORDERABLE S Final Result Performing Organization Address [facility] Co de Phone Number [facility] [address] [place] [address], [place] [phone] * Ferritin (07/06/2025 1:36 PM EDT) [facility] Ferritin 78 8 - 252 ng/mL LAB CHEMISTRY METHOD 07/06/2025 10:13 PM EDT [facility] Blood Venous blood specimen / Unknown Venipuncture / Unknown 07/06/2025 1:36 PM EDT 07/06/2025 4:34 PM EDT us Adam Jang MD LAB BLOOD ORDERABLE S Final Result Performing Organization Address [facility]/ZIP Co de Phone Number [facility] [address] [place] [address], [place] [phone] * Lipid panel with reflex to direct LDL (04/27/2025 8:51 AM EDT) Cholesterol 185 0 - 200 mg/dL LAB CHEMISTRY METHOD 04/27/2025 10:31 AM EDT [facility] Triglycerides 69 0 - 150 mg/dL LAB CHEMISTRY METHOD 04/27/2025 10:31 AM [facility] HDL 77 >=40 mg/dL LAB CHEMISTRY METHOD 04/27/2025 10:31 AM T [facility] LDL Calculated 94 0 - 100 mg/dL LAB CHEMISTRY METHOD 04/27/2025 10:31 AM [facility] VLDL Cholesterol Oh 13.8 mg/dL LAB CHEMISTRY METHOD 04/27/2025 10:31 AM [facility] Non HDL Chol. (LDL+VLDL) 108 <145 mg/dL LAB CHEMISTRY METHOD 04/27/2025 10:31 AM [facility] Chol/HDL Ratio 2.4 0.0 - 4.4 LAB CHEMISTRY METHOD 04/27/2025 10:31 AM [facility] Blood Venous blood specimen / Unknown Venipuncture / Unknown 04/27/2025 8:51 AM EDT 04/27/2025 8:51 AM EDT us Tor Gomez MD LAB BLOOD ORDERABLES Final Resul t [facility] [address] [place] [address], * (ABNORMAL) Comprehensive metabolic panel (04/27/2025 8:51 AM EDT) Pathologist [facility] Sodium 142 133 - 145 mmol/L LAB CHEMISTRY METHOD 04/27/2025 10:31 AM [facility] Potassium 4.7 3.5 - 5.5 mmol/L LAB CHEMISTRY METHOD 04/27/2025 10:31 AM [facility] Chloride 108 96 - 110 mmol/L LAB CHEMISTRY METHOD 04/27/2025 10:31 AM [facility] CO2 30 21 - 32 mmol/L LAB CHEMISTRY METHOD 04/27/2025 10:31 AM [facility] Anion Gap 4 3 - 11 LAB CHEMISTRY METHOD 04/27/2025 10:31 AM [facility] Glucose 82 70 - 100 mg/dL LAB CHEMISTRY METHOD 04/27/2025 10:31 AM [facility] BUN 26(H) 5 - 25 mg/dL LAB CHEMISTRY METHOD 04/27/2025 10:31 AM [facility] Creatinine 0.80 0.50 - 1.10 mg/dL LAB CHEMISTRY METHOD 04/27/2025 10:31 AM [facility] eGFR 74 >=60 mL/min/1. 73m2 LAB CHEMISTRY METHOD 04/27/2025 10:31 AM [facility] Comment:Calculation based on the Chronic Kidney Disease Epidemiology Collaboration (CKD-EPI) equation refit without adjustment for race. BUN/Creatinine Ratio 32.5 LAB CHEMISTRY METHOD 04/27/2025 10:31 AM [facility] Calcium 9.3 8.5 - 10.5 mg/dL LAB CHEMISTRY METHOD 04/27/2025 10:31 AM [facility] AST (SGOT) 15 10 - 42 unit/L LAB CHEMISTRY METHOD 04/27/2025 10:31 AM [facility] ALT (SGPT) 19 10 - 60 unit/L LAB CHEMISTRY METHOD 04/27/2025 10:31 AM [facility] Alkaline Phosphatase 120 42 - 121 unit/L LAB CHEMISTRY METHOD 04/27/2025 10:31 AM [facility] Total Protein 6.8 6.0 - 8.0 g/dL LAB CHEMISTRY METHOD 04/27/2025 10:31 AM [facility] Albumin 3.8 3.2 - 5.0 g/dL LAB CHEMISTRY METHOD 04/27/2025 10:31 AM EDT [facility] Total Bilirubin 0.4 0.0 - 1.4 mg/dL LAB CHEMISTRY METHOD 04/27/2025 10:31 AM EDT [facility] Blood Venous blood specimen / Unknown Venipuncture / Unknown 04/27/2025 8:51 AM EDT 04/27/2025 8:51 AM EDT us Tor Gomez MD LAB BLOOD ORDERABLES Final Resul t [facility] [address] [place] [address], * STAN DEXA AXIAL SKELETON (06/16/2023 9:57 AM EDT) Anatomical Region Laterality Modality Mammography 06/12/2023 11:2 9 AM EDT Narrative 06/16/2023 9:57 AM EDT [facility] Diagnostic Imaging Department [address] [place] [address] Patient: ASHLEY BANERJEE/Age/Sex: 1945 - 78 - F Unit#: [id number] Location/Status: SPDIMAM/REG CLI Mnemonic/Ordering Site: MAMDEXAAX/SPMAM Ordering Physician: TOR GOMEZ MD Stan Dexa Axial Skeleton - 06/12/23 - 1153 Report Status:Signed History: Low estrogen state due to menopause. Comparison: 02/25/21 Findings: Bone densitometry is performed utilizing dual energy x-ray absorptiometry (DXA) in the [employer] unit. The lumbar spine and proximal femora [...] 9.3 percent Hip 2.6 percent. IMPRESSION: Osteopenia. [id number] Dictating Physician: STACY ARANDA MD Electronically Signed by: STACY ARANDA MD Dic Date/Time: 06/16/2356 Sign date/Time: 06/16/2357 Procedure Note Stacy Aranda MD - 11/17/2023 [facility] Diagnostic Imaging Department [address] [place] [address] Patient: ASHLEY BANERJEE/Age/Sex: 1945 - 78 - F Unit#: [id number] Location/Status: SPDIMAM/REG CLI Mnemonic[facility] Ordering Physician: TOR GOMEZ MD [facility] Dexa Axial Skeleton - 06/12/23 - 1153 Report Status:Signed History: Low estrogen state due to menopause. Comparison: 02/25/21 Findings: Bone densitometry is performed utilizing dual energy x-ray absorptiometry(DXA) in the [employer] unit. The lumbar spine and proximal femora [...] Osteoporotic 9.3percent Hip 2.6 percent. IMPRESSION: Osteopenia. [id number] Dictating Physician: STACY ARANDA MD Electronically Signed by: STACY ARANDA MD Dic Date/Time: 06/16/2356 Sign date/Time: 06/16/23956 us Tor Gomez MD IMG BI PROCEDURES Final Result from Last 3 Months or Most Recently Relevant to Health Maintenance Insurance [employer] Care Teams Nuclear Equipment Research Engineer Relationship Specialty Start Date End Date Tor Gomez MD [address] [facility] [address] [place] [address] PCP - General Internal Medicine 12/02/18
--- OUTSIDE RECORDS SUMMARY | 2025-09-16 08:06 | XMS_ITS | Clinical Summary ---
Author Organization [facility] Prior to 03/11/25 Address [address] [place] [address] Care Team Providers Care Features Reporter Name Role Phone Tor Gomez MD Primary [...] 75+ series) 01/20/2019 Influenza Vaccine (#1) 2025 , 08/12/2019, 07/25/2017 Hepatitis B Vaccines Aged Out No long er eligible based on patient's age to complete this topic RSV Ped < 20 months Aged Out No longe r eligible based on patient's age to complete this topic Care Teams Features Reporter Relationship Specialty Start Date End Date Tor Gomez MD PCP - General Internal Medicine 03/03/19
--- OUTSIDE RECORDS SUMMARY | 2025-09-16 08:06 | XMS_ITS | Encounter Summary ---
Author Organization [facility] Address [address] [place] [address] Care Team Providers Care Airconditioning Engineer Name Role Phone Tor Gomez MD Primary Care Provider [phone] Encounter Details Date Type Department Care Team (Late Contact Info) Description 07/11/2025 Results Follow-Up [facility] Hematology Oncology [address] [place] [phone] Adam Jang MD [address] [place] [phone] Social History Tobacco Use Types Packs/Day Years [...] Visit [facility] Hematology Oncology [address] [place] [phone] Adam Jang MD [address] [place] [phone] documented as of this encounter Visit Diagnoses Not on filedocumented in this encounter Additional Health Concerns Assessment Noted Time PHQ-9 Depression Total Score: 0 04/27/20 25 8:31 AM EDT documented as of this encounter Care Teams Airconditioning Engineer Relationship Specialty Start Date End Date Tor Gomez MD [address] [place] [address] PCP - General Internal Medicine 12/02/18 documented as of this encounter
== END 2025-09-16 08:04 | disposition home or self-care (01) ==
LOC: HO.MRI 08:03
PROVIDERS: PCP Internal Medicine; Visit Provider Psychiatry & Neurology Neurology
DX: G31.84 Mild cognitive impairment of uncertain or unknown etiology (principal); R27.0 Ataxia, unspecified
CPT/HCPCS: 70551

== ENCOUNTER → 2025-09-16 08:03 | Outpatient (BNV) | payer MEDICARE, SELFPAY | PROVIDERS: PCP Internal Medicine; Visit Provider Radiology Diagnostic Radiology | DX: G31.9 Degenerative disease of nervous system, unspecified (principal) | CPT/HCPCS: 70551 ==